=== PATIENT | male | born 1955 | race Caucasian/White ===

== ENCOUNTER → 2016-08-02 | Outpatient (CLI) | payer OTHER ==
[~2016-08-02] MED LIST: ASPI81TA28 PO; AZITTAB PO; CLOP1TAB15 PO; LISI-461 PO; LORA-741 PO; METO25TA56 PO; SIMV40TA2 PO
--- NOTE | 2016-08-02 09:29 | DIAGNOSTIC IMAGING REPORT ---
CT SCAN OF THE PARANASAL SINUSES CLINICAL HISTORY: Chronic sinusitis. Facial pain. COMPARISON STUDY: No priors. TECHNIQUE: High-resolution CT scan of the paranasal sinuses is performed. Images are reviewed in the axial, sagittal, and coronal planes. IV contrast was not administered for this examination. The examination is performed utilizing the fusion protocol. CT DOSE: 665.08 mGycm FINDINGS: Maxillary antra: There is trace dependent mucosal thickening on the right. Clear in the left. Anterior ethmoid sinuses: Clear. Posterior ethmoid sinuses: Clear. Sphenoid sinuses: Clear. Frontal sinuses: Trace mucosal thickening is seen bilaterally. Ostiomeatal complexes: Patent bilaterally. Frontoethmoidal and sphenoethmoidal recesses: Patent bilaterally. Carotid arteries: The carotid arteries are protuberant but covered and without septal attachments. Ethmoid roofs: There is slightly asymmetric elevation of the left ethmoid roof as compared to the right. Nasal turbinates: Normal in appearance. Nasal septum: There is rightward deviation of the bony nasal septum with a small spur. Optic nerves: Covered. Orbits: The bony orbits are intact. Orbital contents are normal in appearance. Calvarium: The skeletal structures are osteopenic. The imaged calvarium is normal in appearance. A large periapical lucency is identified in the right anterior maxilla with cortical breakthrough. Mastoid air cells: Well pneumatized. Brain parenchyma: Partially visualized brain parenchyma is within normal limits. There is atherosclerotic calcification of the cavernous carotid arteries. IMPRESSION: 1. No significant paranasal sinus disease. See above. 2. There is a large apical lucency identified in the right maxilla with associated cortical breakthrough. There is no tooth seen in the overlying socket. Consider follow-up with dentistry. Electronically signed by: Rustam Poole M.D. 08/02/2016 9:27 AM Dictated Date/Time: 08/02/2016 9:22 AM
== END | disposition home or self-care (01) ==
LOC: C.CTS 09:04
DX: J34.2 Deviated nasal septum (principal); J32.9 Chronic sinusitis, unspecified; J34.3 Hypertrophy of nasal turbinates; R51 Headache

== ENCOUNTER 2020-07-19 18:37 | Inpatient (IN) ==
[2020-07-19] MEDS ORDERED: ACETAMINOPHEN 500 MG TAB PO STA (18:54)
--- NOTE | 2020-07-19 18:59 | Emergency Department Note ---
History of Present Illness General Chief complaint: Shortness of Breath/Dyspnea Stated complaint: SOB Time Seen by Provider: 07/19/20 18:44 Source: patient Mode of arrival: EMS History of Present Illness Provider complaint: Flulike symptoms Onset (ago): day(s) Location: chest Severity: moderate Pain Consistency: + constant Quality: + other (Fever, shortness of breath and cough) Relieved By: + none Associated symptoms: + cough, + fever/chills, + malaise and + shortness of breath; no chest pain and no nausea/vomiting This is a 64-year-old male who presents with flulike symptoms since the of this month. The patient states that he had a telephone visit with his doctor and she put him on Augmentin. He declined having Covid testing at that time s tating he was self isolating anyway. He complains of cough, fevers and myalgias. He has also lost his sense of taste and smell. He denies any chest pain. He also states he has been short of breath since the . He went to a local urgent care center today where they found his pulse ox to be 90 and sent him here for further evaluation. No testing was done at that facility. He denies any lower extremity swelling or pain. He denies any abdominal pain, vomiting or diarrhea. He has no known exposure to COVID-19. Home Medications Medication Instructions Recorded Confirmed Type nitroglycerin 0.4 mg sublingual 0.4 mg SL DIRECTED PRN #25 tab 08/20/19 07/19/20 History tablet clopidogrel 75 mg tablet 75 mg PO QAM #90 tab 01/16/20 07/19/20 Rx simvastatin 40 mg tablet 40 mg PO HS #90 tab 01/16/20 07/19/20 Rx lisinopril 20 mg tablet 20 mg PO QAM #30 tab 01/27/20 07/19/20 Rx metoprolol succinate 25 mg 25 mg PO BID #180 tab 02/05/20 07/19/20 Rx tablet,extended release 24 hr montelukast 10 mg tablet 10 mg PO QPM #90 tab 06/24/20 07/19/20 Rx metformin 500 mg tablet,extended 500 mg PO BID #180 tab 07/06/20 07/19/20 Rx release 24 hr aspirin [Aspirin Low Dose] 81 mg PO QAM 07/19/20 07/19/20 History pantoprazole 40 mg PO QAM 07/19/20 07/19/20 History Allergies Allergy/AdvReac Type Severity Reaction Status Date / Time No Known Allergies Allergy Verified 07/19/20 20:05 Past Med/Surg History Medical History (Updated 07/19/20 @ 23:14 by Satinder Diaz MD) CAD, multiple vessel Diabetes mellitus type 2, uncontrolled Gastroesophageal reflux disease Hypertension Lymphadenopathy, cervical Sinusitis STEMI (ST elevation myocardial infarction) Surgical History H/O heart artery stent Family History Mother Coronary heart disease Hypertension Sister Breast cancer Grandfather Myocardial infarction Uncle Myocardial infarction Father Hypertension Social History Smoking Status: Never smoker Hx Alcohol Use: No Hx Substance Use: No Preferred Language: Nepali Communication Ability: Effective Beliefs That Will Affect Care: None Current Living Situation: Alone Feels Safe at Home: Yes Assistive Devices: None Review of Systems See HPI for pertinent positives & negatives. and A total of 10 systems reviewed and were otherwise negative Physical Exam Vital Signs Vital Signs - 24 hr 07/19/20 18:32 07/19/20 18:51 07/19/20 18:54 Temperature 39.6 C H Temperature Source Oral Pulse Rate 100 H 95 H 100 H Pulse Rate from SpO2 Sensor 96 H Pulse Rhythm Regular Pulse Strength Normal Respiratory Rate 30 H 19 30 H Respiratory Effort / Characteristics Non-Labored Spontaneous Respiratory Depth Deep Respiratory Pattern Tachypnea Blood Pressure 151/58 H 151/58 H Blood Pressure Mean 89 90 Blood Pressure Position Lying Pulse Oximetry 90 88 L 90 Oxygen Delivery Method Room Air Room Air Room Air Oxygen Flow Rate 0 Sepsis Recent Fever Within 48 Hours Yes Sepsis New/Unexplained Change in Mental Status N/A Sepsis Action Taken by Nursing No Action Required Oxygen Flow Rate - Titration 2 Pulse Oximetry Post Tiitration 94 07/19/20 19:00 07/19/20 19:30 07/19/20 20:00 Temperature Temperature Source Pulse Rate 97 H 91 H Pulse Rate from SpO2 Sensor 105 H 99 H 92 H Pulse Rhythm Pulse Strength Respiratory Rate 29 H 21 18 Respiratory Effort / Characteristics Respiratory Depth Respiratory Pattern Blood Pressure 159/85 H 178/72 H 102/80 Blood Pressure Mean 112 126 83 Blood Pressure Position Pulse Oximetry 96 94 93 Oxygen Delivery Method Nasal Cannula Nasal Cannula Nasal Cannula Oxygen Flow Rate 2 2 2 Sepsis Recent Fever Within 48 Hours Sepsis New/Unexplained Change in Mental Status Sepsis Action Taken by Nursing Oxygen Flow Rate - Titration Pulse Oximetry Post Tiitration 07/19/20 20:30 07/19/20 21:00 07/19/20 22:30 Temperature Temperature Source Pulse Rate 83 107 H 65 Pulse Rate from SpO2 Sensor 84 84 Pulse Rhythm Pulse Strength Respiratory Rate 21 21 18 Respiratory Effort / Characteristics Respiratory Depth Respiratory Pattern Blood Pressure 134/66 136/51 L Blood Pressure Mean 72 60 Blood Pressure Position Pulse Oximetry 93 92 96 Oxygen Delivery Method Nasal Cannula Nasal Cannula Oxygen Flow Rate 2 2 Sepsis Recent Fever Within 48 Hours Sepsis New/Unexplained Change in Mental Status Sepsis Action Taken by Nursing Oxygen Flow Rate - Titration Pulse Oximetry Post Tiitration 07/19/20 23:00 Temperature 37.3 C Temperature Source Pulse Rate 70 Pulse Rate from SpO2 Sensor Pulse Rhythm Pulse Strength Respiratory Rate 20 Respiratory Effort / Characteristics Respiratory Depth Respiratory Pattern Blood Pressure 145/67 H Blood Pressure Mean 93 Blood Pressure Position Pulse Oximetry 96 Oxygen Delivery Method Nasal Cannula Oxygen Flow Rate 2 Sepsis Recent Fever Within 48 Hours Sepsis New/Unexplained Change in Mental Status Sepsis Action Taken by Nursing Oxygen Flow Rate - Titration Pulse Oximetry Post Tiitration Constitutional: Vital signs reviewed. Warm to touch. Eyes: Pupils are equal round reactive to light. Conjunctiva are noninjected. ENT: Pharynx is clear without erythema or exudate. Mucous membranes are moist. Neck supple without meningeal signs. Respiratory: Scattered rhonchi. Breath sounds are equal bilaterally. Cardiovascular: Regular rate and rhythm. No rubs or gallops. GI: Soft, nondistended and nontender. Bowel sounds are present. Musculoskeletal: No peripheral edema. No lower extremity tenderness. Integumentary: No cyanosis. or jaundice. Neurological: The patient is awake and alert. No focal deficits. Psychiatric: Normal affect. Not anxious appearing. Course Administered Medications Discontinued Medications Acetaminophen (Acetaminophen 500 Mg Tab) 1,000 mg PO NOW STA Stop: 07/19/20 18:55 Last Admin: 07/19/20 18:37 Dose: 1,000 mg Documented by: [id number] Dexamethasone (Dexamethasone Sod Inj 10 Mg/Ml Vial) 6 mg IV NOW ONE Stop: 07/19/20 20:36 Last Admin: 07/19/20 23:02 Dose: 6 mg Documented by: [id number] Ioversol (Optiray 320 125ml) 119 ml IV ONCE ONE Stop: 07/19/20 21:34 Last Admin: 07/19/20 21:33 Dose: 119 ml Documented by: [id number] Medical Decision Making Differential Diagnosis COVID-19, pneumonia, bronchitis, influenza, pulmonary embolism Medical Records Attestation: I reviewed the patient's medical records. I did perform a limited focused review of portions of the patient's old chart on the electronic medical record. The patient had a telephone visit with his primary care provider on July 14. He declined Covid testing at that time and was treated with Augmentin and Tessalon Perles. Home Medications Current Medication List: was personally reviewed by me Laboratory Data Attestation: I reviewed the patient's lab results. Result diagrams: 07/19/20 19:16 07/19/20 19:16 Lab Results 07/19/20 07/19/20 07/19/20 Range/Units 19:16 19:16 19:16 WBC 12.75 H (4.8-10.8) K/uL RBC 4.45 L (4.7-6.1) M/uL Hgb 12.9 L (14.0-18.0) g/dL Hct 37.8 L (42-52) % MCV 84.9 (80-100) fL MCH 29.0 (25-34) pg MCHC 34.1 (32-36) g/dL RDW Std Deviation 46.4 H (36.4-46.3) fL RDW Coeff of Nanette 14.7 H (11.5-14.5) % Plt Count 204 (130-400) K/uL MPV 9.9 (7.4-10.4) fL Immature Gran % (Auto) 0.2 % Neut % (Auto) 88.9 % Lymph % (Auto) 6.4 % Sunflower % (Auto) 4.2 % Eos % (Auto) 0.1 % Baso % (Auto) 0.2 % Neut # (Auto) 11.34 H (1.4-6.5) K/uL Lymph # (Auto) 0.81 L (1.2-3.4) K/uL Sunflower # (Auto) 0.54 (0.11-0.59) K/uL Eos # (Auto) 0.01 (0-0.5) K/uL Baso # (Auto) 0.02 (0-0.2) K/uL Immature Gran # (Auto) 0.03 H (0.00-0.02) K/uL PT 12.4 H (9.0-12.0) Seconds INR 1.2 H (0.9-1.1) APTT 26.5 (21.0-31.0) Seconds PTT Ratio 0.9 D-Dimer 720 H* (0-500) ug/L FEU Sodium 134 L (136-145) mmol/L Potassium 4.1 (3.5-5.1) mmol/L Chloride 100 (98-107) mmol/L Carbon Dioxide 27 (21-32) mmol/L Anion Gap 7.0 (3-11) BUN 19 H (7-18) mg/dl Creatinine 1.30 (0.6-1.4) mg/dl Est Cr Clr Drug Dosing 59.5 ml/min Est GFR ( Amer) 66.4 Est GFR (Non-Af Amer) 57.3 BUN/Creatinine Ratio 14.8 (10-20) Glucose 124 H (70-99) mg/dl Lactate (0.4-2.0) mmol/L Calcium 8.5 (8.5-10.1) mg/dl Total Bilirubin 1.2 H (0.2-1) mg/dl AST 38 H (15-37) U/L ALT 56 (12-78) U/L Alkaline Phosphatase 86 (45-117) U/L Troponin I 0.021 (0-0.045) ng/ml Total Protein 7.8 (6.4-8.2) gm/dl Albumin 3.4 (3.4-5.0) gm/dl Globulin 4.4 H (2.5-4.0) gm/dl Albumin/Globulin Ratio 0.8 L (0.9-2) COVID-19 Eval Order Influ A Molecular Assay (Negative) Influ B Molecular Assay (Negative) SARS-CoV-2, RNA, NAAT (NEGATIVE) 07/19/20 07/19/20 07/19/20 Range/Units 19:16 19:16 20:16 WBC (4.8-10.8) K/uL RBC (4.7-6.1) M/uL Hgb (14.0-18.0) g/dL Hct (42-52) % MCV (80-100) fL MCH (25-34) pg MCHC (32-36) g/dL RDW Std Deviation (36.4-46.3) fL RDW Coeff of Nanette (11.5-14.5) % Plt Count (130-400) K/uL MPV (7.4-10.4) fL Immature Gran % (Auto) % Neut % (Auto) % Lymph % (Auto) % Sunflower % (Auto) % Eos % (Auto) % Baso % (Auto) % Neut # (Auto) (1.4-6.5) K/uL Lymph # (Auto) (1.2-3.4) K/uL Sunflower # (Auto) (0.11-0.59) K/uL Eos # (Auto) (0-0.5) K/uL Baso # (Auto) (0-0.2) K/uL Immature Gran # (Auto) (0.00-0.02) K/uL PT (9.0-12.0) Seconds INR (0.9-1.1) APTT (21.0-31.0) Seconds PTT Ratio D-Dimer (0-500) ug/L FEU Sodium (136-145) mmol/L Potassium (3.5-5.1) mmol/L Chloride (98-107) mmol/L Carbon Dioxide (21-32) mmol/L Anion Gap (3-11) BUN (7-18) mg/dl Creatinine (0.6-1.4) mg/dl Est Cr Clr Drug Dosing ml/min Est GFR ( Amer) Est GFR (Non-Af Amer) BUN/Creatinine Ratio (10-20) Glucose (70-99) mg/dl Lactate 1.6 (0.4-2.0) mmol/L Calcium (8.5-10.1) mg/dl Total Bilirubin (0.2-1) mg/dl AST (15-37) U/L ALT (12-78) U/L Alkaline Phosphatase (45-117) U/L Troponin I (0-0.045) ng/ml Total Protein (6.4-8.2) gm/dl Albumin (3.4-5.0) gm/dl Globulin (2.5-4.0) gm/dl Albumin/Globulin Ratio (0.9-2) COVID-19 Eval [facility] A Molecular Assay (Negative) Influ B Molecular Assay (Negative) SARS-CoV-2, RNA, NAAT POSITIVE A* (NEGATIVE) 07/19/20 Range/Units 20:16 WBC (4.8-10.8) K/uL RBC (4.7-6.1) M/uL Hgb (14.0-18.0) g/dL Hct (42-52) % MCV (80-100) fL MCH (25-34) pg MCHC (32-36) g/dL RDW Std Deviation (36.4-46.3) fL RDW Coeff of Nanette (11.5-14.5) % Plt Count (130-400) K/uL MPV (7.4-10.4) fL Immature Gran % (Auto) % Neut % (Auto) % Lymph % (Auto) % Sunflower % (Auto) % Eos % (Auto) % Baso % (Auto) % Neut # (Auto) (1.4-6.5) K/uL Lymph # (Auto) (1.2-3.4) K/uL Sunflower # (Auto) (0.11-0.59) K/uL Eos # (Auto) (0-0.5) K/uL Baso # (Auto) (0-0.2) K/uL Immature Gran # (Auto) (0.00-0.02) K/uL PT (9.0-12.0) Seconds INR (0.9-1.1) APTT (21.0-31.0) Seconds PTT Ratio D-Dimer (0-500) ug/L FEU Sodium (136-145) mmol/L Potassium (3.5-5.1) mmol/L Chloride (98-107) mmol/L Carbon Dioxide (21-32) mmol/L Anion Gap (3-11) BUN (7-18) mg/dl Creatinine (0.6-1.4) mg/dl Est Cr Clr Drug Dosing ml/min Est GFR ( Amer) Est GFR (Non-Af Amer) BUN/Creatinine Ratio (10-20) Glucose (70-99) mg/dl Lactate (0.4-2.0) mmol/L Calcium (8.5-10.1) mg/dl Total Bilirubin (0.2-1) mg/dl AST (15-37) U/L ALT (12-78) U/L Alkaline Phosphatase (45-117) U/L Troponin I (0-0.045) ng/ml Total Protein (6.4-8.2) gm/dl Albumin (3.4-5.0) gm/dl Globulin (2.5-4.0) gm/dl Albumin/Globulin Ratio (0.9-2) COVID-19 Eval Order Influ A Molecular Assay Negative (Negative) Influ B Molecular Assay Negative (Negative) SARS-CoV-2, RNA, NAAT (NEGATIVE) Imaging Data Attestation: I personally reviewed and interpreted this imaging study as follows: My Impression: Chest x-ray per my interpretation shows patchy infiltrates concerning for pneumonia. Radiologist's Impression: Preliminary Findings Only See Final Report For Complete Findings CTA CHEST: Comparison: CT chest 06/05/13. Motion artifact obscures evaluation of distal pulmonary artery branch vessels. No acute pulmonary embolism as visualized. No thoracic aortic aneurysm. Normal heart size. No pericardial effusion. Widespread and patchy bilateral ground-glass infiltrates suspicious for viral pneumonia. No pleural effusion or pneumothorax. There is an 11 mm pulmonary nodule in the left upper lobe (series 4, image 140). This nodule measured 9 mm on prior exam from 2013. Given slow interval increase in size, this is favored to be benign. However, given that the nodule has incr eased in size, a neoplastic nodule cannot be definitely excluded. Consider continued imaging follow-up. Chronic granulomatous disease. No acute osseous findings. Radiologist: Mendoza Muir M.D. Study ready at 22:09 and initial results transmitted at 22:25 ECG Data Attestation: I personally reviewed and interpreted this ECG as follows: Indication: + SOB/dyspnea Rate (beats per minute): 97 Rhythm: + normal sinus ECG ST segments: + T-wave inversions (Biphasic T waves in leads V5 and 6); no ST elevation ECG Findings: no PVCs MDM Narrative I did evaluate the patient as noted above. The patient is presenting with symptoms consistent with COVID-19. He was placed in respiratory isolation. COVID-19 testing was obtained. This came back positive. IV access was established. I did place an order for continuous cardiac monitoring. The monitor showed normal sinus rhythm at a rate of 96 bpm. I did order and personally review the patient's 12-lead EKG as described above. He has no evidence of acute ischemia. I did order and personally reviewed the images of the patient's chest x-ray as described above. He did appear to have some patchy infiltrates. I did order and review the patient's blood work as noted in the electronic medical record. His white blood cell count is elevated with some mild lymphopenia in the differential. D-dimer was elevated at 720. Troponin is negative. Influenza testing is negative. I did discuss the test results with the patient. He was agreeable to CT scanning of the chest to rule out PE. I did order a CT angiogram of the chest. I did review the images myself as well as the radiology report as described above. There is no evidence of pulmonary embolism. He does however have widespread and patchy bilateral groundglass infiltrates consistent with COVID-19 pneumonia. He also has an enlarging 11 mm pulmonary nodule in the left upper lobe. The patient was informed of his test results. He will be hospitalized due to his hypoxemia. The nurse noted a pulse ox in the high 80s with significant respiratory effort and accessory muscle use when off the oxygen. The case was discussed with the correctional counselor/case manager and the hospitalist was informed. Impression & Plan Hypoxemia, Pneumonia due to 2019 novel coronavirus, Pulmonary nodule Discharge Plan Visit Data Chief Complaint: Shortness of Breath/Dyspnea Stated Complaint: SOB ED Provider: Satinder Diaz Discharge Problem: Hypoxemia, Pneumonia due to 2019 novel coronavirus, Pulmonary nodule Patient Disposition: Being Evaluated by Hospitalist Forms Stand Alone Forms: My [facility] [employer] Prescriptions Prescriptions: No Action clopidogrel 75 mg tablet 75 mg PO QAM Qty: 90 RF: 3 simvastatin 40 mg tablet 40 mg PO HS Qty: 90 RF: 3 lisinopril 20 mg tablet 20 mg PO QAM Qty: 30 RF: 5 metoprolol succinate 25 mg tablet extended release 24 hr 25 mg PO BID Qty: 180 RF: 3 montelukast 10 mg tablet 10 mg PO QPM Qty: 90 RF: 3 metformin 500 mg tablet extended release 24 hr 500 mg PO BID Qty: 180 RF: 3 nitroglycerin 0.4 mg tablet, sublingual 0.4 mg SL DIRECTED PRN (Reason: Chest Pain) Qty: 25 RF: 0 aspirin [Aspirin Low Dose] 81 mg Tablet,Delayed Release (Dr/Ec) 81 mg PO QAM RF: 0 pantoprazole 40 mg tablet,delayed release (DR/EC) 40 mg PO QAM RF: 0 Referrals Referrals: Nishant Dawn III, MD [Primary Care Provider] -
[2020-07-19 19:42] LABS: Basophils # (auto) 0.02 K/uL (0-0.2); Basophils % (auto) 0.2 %; Eosinophils # (auto) 0.01 K/uL (0-0.5); Eosinophils % (auto) 0.1 %; Hematocrit (blood only) 37.8 % (42-52); Hemoglobin 12.9 g/dL (14.0-18.0); Immature Granulocytes # (auto) 0.03 K/uL (0.00-0.02); Immature Granulocytes % (auto) 0.2 %; Lymphocytes # (auto) 0.81 K/uL (1.2-3.4); Lymphocytes % (auto) 6.4 %; Mean Corpuscular Hgb Conc 34.1 g/dL (32-36); Mean Corpuscular Volume 84.9 fL (80-100); Mean Platelet Volume 9.9 fL (7.4-10.4); Monocytes # (auto) 0.54 K/uL (0.11-0.59); Monocytes % (auto) 4.2 %; Neutrophils # (auto) 11.34 K/uL (1.4-6.5); Neutrophils % (auto) 88.9 %; Platelet Count 204 K/uL (130-400); RDW Coefficient of Variation 14.7 % (11.5-14.5); RDW Standard Deviation 46.4 fL (36.4-46.3); Red Blood Count 4.45 M/uL (4.7-6.1); White Blood Count 12.75 K/uL (4.8-10.8)
[2020-07-19 19:54] LABS: INR 1.2 (0.9-1.1); Partial Thromboplastin Ratio 0.9; Partial Thromboplastin Time 26.5 Seconds (21.0-31.0); Prothrombin Time 12.4 Seconds (9.0-12.0)
[2020-07-19 19:59] LABS: D Dimer 720 ug/L FEU (0-500)
[2020-07-19 20:07] LABS: Albumin Level 3.4 gm/dl (3.4-5.0); BUN Creatinine Ratio 14.8 (10-20); Calcium 8.5 mg/dl (8.5-10.1); Creatinine Clr Calc Pharmacy 59.5 ml/min; Est GFR (African American) 66.4; Est GFR (Non-African American) 57.3; Potassium 4.1 mmol/L (3.5-5.1)
[2020-07-19 20:12] LABS: Albumin Globulin Ratio 0.8 (0.9-2); Bilirubin,Total 1.2 mg/dl (0.2-1); Globulin 4.4 gm/dl (2.5-4.0); Total Protein 7.8 gm/dl (6.4-8.2); Troponin I 0.021 ng/ml (0-0.045)
[2020-07-19] MEDS ORDERED: DEXAMETHASONE SOD INJ 10 MG/ML VIAL IV ONE (20:35)
[2020-07-19 20:42] LABS: Influenza A virus by PCR Negative (Negative)
[2020-07-19 20:43] LABS: Influenza B virus by PCR Negative (Negative)
[2020-07-19] MEDS ORDERED: OPTIRAY 320 125ml IV ONE (21:33)
--- NOTE | 2020-07-19 23:51 | History & Physical Report ---
Date of Service July 19, 2020 Assessment & Plan (1) Pneumonia due to 2019 novel coronavirus: Pneumonia due to COVID-19 virus with hypoxia- Dexamethasone 6 mg IV every morning Azithromycin 500 mg IV daily Ventolin HFA 2 puffs 4 times daily, and every 2 hours as needed Zinc sulfate 220 mg p.o. every morning Nasal cannula oxygen, titrate to keep pulse ox 94 to 95% Present on Admission?: Yes (2) Hypoxemia: See above Present on Admission?: Yes (3) Pulmonary nodule: Left upper lobe pulmonary nodule is increased in size from 9 mm in 2013 to 11 mm today. We will refer to pulmonology for follow-up. Present on Admission?: Yes (4) Dyslipidemia: Continue simvastatin 40 mg at bedtime Present on Admission?: Yes (5) Type 2 diabetes mellitus: Hold Metformin Placed on Accu-Cheks before meals and at bedtime with NovoLog coverage per scale. Of note, patient reports last time he was on steroids his blood sugar increased to 400. Will need to be watched closely, and may need to be placed on long acting insulin for sugar bump significantly while on dexamethasone. Present on Admission?: Yes (6) Gastroesophageal reflux disease: Continue pantoprazole 40 mg every morning Present on Admission?: Yes (7) CAD, multiple vessel: CAD/hypertension- Continue aspirin, clopidogrel, metoprolol succinate. Hold lisinopril. Present on Admission?: Yes (8) Hypertension: See above Present on Admission?: Yes History of Present Illness Chief Complaint: The patient presents to the emergency department with complaint of shortness of breath, dyspnea on exertion, cough, fever and chills that began around 10 July. Primary Care Provider: Nishant Dawn MD The patient is a 64-year-old male with past medical history including pulmonary nodule, dyslipidemia, stented coronary artery, diabetes mellitus type 2, cervical lymphadenopathy, GERD, multivessel CAD, hypertension and obesity. The patient initially developed symptoms on July 10, had a telephone visit with his doctor, and was placed on Augmentin. He declined COVID-19 testing at that time since he was already self isolating. Since that time he has developed cough, fevers and muscle aches, and more recently has lost his sense of taste and smell which, makes it more difficult for him to eat now. He went to a local urgent care center today, with the intent of getting a COVID-19 test, however, because of his pulse ox of 90 while he was there, he was sent to the ED for further evaluation. Work-up in the emergency department included the following: Abnormal vital signs showed a temperature of 103.3, and pulse ox 88% on room air. Laboratories: WBC 12.75, hemoglobin 12.9, INR 1.2, glucose 124, D-dimer 720, sodium 134, total bilirubin 1.2, AST 38 and COVID-19 test positivity. Chest x-ray showed bilateral interstitial infiltrates. CT angiography PE protocol was negative for PE, did show findings consistent with viral pneumonia. Left upper lobe pulmonary nodule increased in size from 9 mm in 2012 to 11 mm today. Chronic granulomatous disease was present. Allergies Allergy/AdvReac Type Severity Reaction Status Date / Time No Known Allergies Allergy Verified 07/19/20 20:05 Home Medications Medication Instructions Recorded Confirmed Type nitroglycerin 0.4 mg sublingual 0.4 mg SL DIRECTED PRN #25 tab 08/20/19 07/19/20 History tablet clopidogrel 75 mg tablet 75 mg PO QAM #90 tab 01/16/20 07/19/20 Rx simvastatin 40 mg tablet 40 mg PO HS #90 tab 01/16/20 07/19/20 Rx lisinopril 20 mg tablet 20 mg PO QAM #30 tab 01/27/20 07/19/20 Rx metoprolol succinate 25 mg 25 mg PO BID #180 tab 02/05/20 07/19/20 Rx tablet,extended release 24 hr montelukast 10 mg tablet 10 mg PO QPM #90 tab 06/24/20 07/19/20 Rx metformin 500 mg tablet,extended 500 mg PO BID #180 tab 07/06/20 07/19/20 Rx release 24 hr aspirin [Aspirin Low Dose] 81 mg PO QAM 07/19/20 07/19/20 History pantoprazole 40 mg PO QAM 07/19/20 07/19/20 History Past Med/Surg History Medical History (Updated 07/19/20 @ 23:14 by Satinder Diaz MD) CAD, multiple vessel Diabetes mellitus type 2, uncontrolled Gastroesophageal reflux disease Hypertension Lymphadenopathy, cervical Sinusitis STEMI (ST elevation myocardial infarction) Surgical History H/O heart artery stent Family History Mother Coronary heart disease Hypertension Sister Breast cancer Grandfather Myocardial infarction Uncle Myocardial infarction Father Hypertension Social History Smoking Status: Never smoker Hx Alcohol Use: No Hx Substance Use: No Preferred Language: Hebrew Communication Ability: Effective Beliefs That Will Affect Care: None Current Living Situation: Alone Feels Safe at Home: Yes Assistive Devices: None Review of Systems Review of Systems: The patient denies chest pain, palpitations, lower extremity swelling, sore throat, chills, sweats, weight change, vomiting, diarrhea , constipation, abdominal pain, pelvic pain, blood in urine or stool, dysuria, urinary frequency or urgency, memory loss, loss of consciousness, rash, abnormal bruising or bleeding, imbalance, focal weakness, numbness or tingling in arms or legs, back or neck pain, or night sweats. The review of systems is otherwise negative other than for that already noted above, and at least 10 systems have been reviewed. Physical Exam Physical Exam: The patient is awake, alert and oriented 3, well developed and well nourished, normocephalic and atraumatic, lying in bed and in no acute distress. HEENT--PERRL, EOMI, mucous membranes and oropharynx dry. Neck--supple. No JVD. No bruits. Thyroid normal, trachea midline, no adenopathy. Heart--normal S1 and S2. No murmurs, rubs or gallops. Lungs--coarse breath sounds bilaterally. No respiratory distress, no accessory muscle use. Abdomen--normal bowel sounds and soft. Nontender. Nondistended. Obese. Extremities--no cyanosis or clubbing. No edema. Dermatologic--normal skin turgor, normal color, no abnormal lymph nodes, no rash. Neurologic--cranial nerves II through XII grossly intact. Rheumatologic--normal range of motion. Psychiatric--normal affect. Results & Data Results & Data ([facility]) Vital Signs (Past 12 Hours) Vital Signs Temp Pulse Resp BP Pulse Ox 07/19/20 23:00 99.1 F 70 20 145/67 H 96 07/19/20 22:30 65 18 96 07/19/20 21:00 107 H 21 136/51 L 92 07/19/20 20:30 83 21 134/66 93 07/19/20 20:00 91 H 18 102/80 93 07/19/20 19:30 97 H 21 178/72 H 94 07/19/20 19:00 29 H 159/85 H 96 07/19/20 18:54 100 H 30 H 90 07/19/20 18:51 95 H 19 151/58 H 88 L 07/19/20 18:32 103.3 F H 100 H 30 H 151/58 H 90 Laboratory Results Laboratory Results WBC 14.84 K/uL (4.8-10.8) H 07/20/20 05:42 RBC 4.55 M/uL (4.7-6.1) L 07/20/20 05:42 Hgb 13.0 g/dL (14.0-18.0) L 07/20/20 05:42 Hct 39.1 % (42-52) L 07/20/20 05:42 MCV 85.9 fL (80-100) 07/20/20 05:42 MCH 28.6 pg (25-34) 07/20/20 05:42 MCHC 33.2 g/dL (32-36) 07/20/20 05:42 RDW Std Deviation 46.0 fL (36.4-46.3) 07/20/20 05:42 RDW Coeff of Nanette 14.6 % (11.5-14.5) H 07/20/20 05:42 Plt Count 185 K/uL (130-400) 07/20/20 05:42 MPV 9.6 fL (7.4-10.4) 07/20/20 05:42 Immature Gran % (Auto) 0.2 % 07/20/20 05:42 Neut % (Auto) 93.7 % 07/20/20 05:42 Lymph % (Auto) 4.0 % 07/20/20 05:42 [place] % (Auto) 2.0 % 07/20/20 05:42 Eos % (Auto) 0.0 % 07/20/20 05:42 Baso % (Auto) 0.1 % 07/20/20 05:42 Neut # (Auto) 13.91 K/uL (1.4-6.5) H 07/20/20 05:42 Lymph # (Auto) 0.59 K/uL (1.2-3.4) L 07/20/20 05:42 [place] # (Auto) 0.30 K/uL (0.11-0.59) 07/20/20 05:42 Eos # (Auto) 0.00 K/uL (0-0.5) 07/20/20 05:42 Baso # (Auto) 0.01 K/uL (0-0.2) 07/20/20 05:42 Immature Gran # (Auto) 0.03 K/uL (0.00-0.02) H 07/20/20 05:42 PT 12.4 Seconds (9.0-12.0) H 07/19/20 19:16 INR 1.2 (0.9-1.1) H 07/19/20 19:16 APTT 26.5 Seconds (21.0-31.0) 07/19/20 19:16 PTT Ratio 0.9 07/19/20 19:16 D-Dimer 720 ug/L FEU (0-500) H* 07/19/20 19:16 Sodium 134 mmol/L (136-145) L 07/19/20 19:16 Potassium 4.1 mmol/L (3.5-5.1) 07/19/20 19:16 Chloride 100 mmol/L (98-107) 07/19/20 19:16 Carbon Dioxide 27 mmol/L (21-32) 07/19/20 19:16 Anion Gap 7.0 (3-11) 07/19/20 19:16 BUN 19 mg/dl (7-18) H 07/19/20 19:16 Creatinine 1.30 mg/dl (0.6-1.4) 07/19/20 19:16 Est Cr Clr Drug Dosing 59.5 ml/min 07/19/20 19:16 Est GFR ( Amer) 66.4 07/19/20 19:16 Est GFR (Non-Af Amer) 57.3 07/19/20 19:16 BUN/Creatinine Ratio 14.8 (10-20) 07/19/20 19:16 Glucose 124 mg/dl (70-99) H 07/19/20 19:16 POC Glucose 120 mg/dl (70-99) H 07/20/20 01:45 Lactate 1.6 mmol/L (0.4-2.0) 07/19/20 19:16 Calcium 8.5 mg/dl (8.5-10.1) 07/19/20 19:16 Total Bilirubin 1.2 mg/dl (0.2-1) H 07/19/20 19:16 AST 38 U/L (15-37) H 07/19/20 19:16 ALT 56 U/L (12-78) 07/19/20 19:16 Alkaline Phosphatase 86 U/L (45-117) 07/19/20 19:16 Troponin I 0.021 ng/ml (0-0.045) 07/19/20 19:16 Total Protein 7.8 gm/dl (6.4-8.2) 07/19/20 19:16 Albumin 3.4 gm/dl (3.4-5.0) 07/19/20 19:16 Globulin 4.4 gm/dl (2.5-4.0) H 07/19/20 19:16 Albumin/Globulin Ratio 0.8 (0.9-2) L 07/19/20 19:16 COVID-19 Eval Order Covid19 IDNow [facility] 07/19/20 19:16 Influ A Molecular Assay Negative (Negative) 07/19/20 20:16 Influ B Molecular Assay Negative (Negative) 07/19/20 20:16 SARS-CoV-2, RNA, NAAT POSITIVE (NEGATIVE) A* 07/19/20 20:16 Diagnostic Findings [facility] Patient: MAHSA SAHU V (Male) : 53 Status: ER Date: 07/19/20 21:38 Room #: History: sob +covid Slices: 630 Priors: Tech: Cely Leiva @ [phone] Exams: CTA CHEST Contrast: IV Amt: 119 ml optiray 320 Accession Numbers: [id number] Preliminary Findings Only See Final Report For Complete Findings CTA CHEST: Comparison: CT chest 06/05/13. Motion artifact obscures evaluation of distal pulmonary artery branch vessels. No acute pulmonary embolism as visualized. No thoracic aortic aneurysm. Normal heart size. No pericardial effusion. Widespread and patchy bilateral ground-glass infiltrates suspicious for viral pneumonia. No pleural effusion or pneumothorax. There is an 11 mm pulmonary nodule in the left upper lobe (series 4, image 140). This nodule measured 9 mm on prior exam from 2013. Given slow interval increase in size, this is favored to be benign. However, given that the nodule has increased in size, a neoplastic nodule cannot be definitely excluded. Consider continued imaging follow-up. Chronic granulomatous disease. No acute osseous findings. Radiologist: Mendoza Muir M.D. Study ready at 22:09 and initial results transmitted at 22:25 *This report constitutes a preliminary interpretation only. Non-acute findings felt to be unrelated to the clinical presentation may not be discussed in this report. The study will be interpreted and a final report will be generated by the local Radiologist the following shift. To reach the hospital radiology department call [phone]. If a discrepancy is found between the preliminary and final interpretations of this study, please notify us via our Client Portal at [email or web address], under QA Exams.You can also fax this report with a description of the discrepancy, or include the final report, to our daytime fax number [phone].If faxing, please indicate the severity of discrepancy using one of the following categories: [ ] 1 - Agree/Informational [ ] 2 - Unlikely to Affect Management [ ] 3 - Possible Eventual Change of Management [ ] 4 - Probable Immediate Change of Management For all other patient related information, please fax us at [phone]. [id number] Code Status & VTE Plan Code Status Full code VTE Prophylaxis Plan VTE Prophylaxis will be ordered: Yes PG Care Time/CCT Total # of Minutes Spent Total Time Spent with Patient: Total time spent is greater than 50% [facility] (as documented) at patient's floor/unit and/or counseling patient: Coding Level of Care Code 81089 Initial Inpt Care Lvl 3 Diagnoses Pneumonia due to 2019 novel coronavirus U07.1; J12.89 Hypoxemia R09.02 Pulmonary nodule R91.1 Dyslipidemia E78.5 Type 2 diabetes mellitus E11.9 Gastroesophageal reflux disease K21.9 CAD, multiple vessel I25.10 Hypertension I10 Hypertension type: essential hypertension (1) Hypertension Hypertension type: essential hypertension Qualified Code(s): I10 - Essential (primary) hypertension
[2020-07-20] MEDS ORDERED: NITROGLYCERIN SL 0.4 MG/TAB TAB SL PRN (00:52)
[2020-07-20] MEDS ORDERED: GLUCOSE 10 TABS/TUBE PO PRN (00:52)
[2020-07-20] MEDS ORDERED: ONDANSETRON INJ 2 MG/ML 2 ML VIAL IV PRN (00:52)
[2020-07-20] MEDS ORDERED: GLUCAGON FOR INJ 1 MG VIAL SQ PRN (00:52)
[2020-07-20] MEDS ORDERED: ENOXAPARIN 0.5 MG/KG SQ SCH (00:52)
[2020-07-20] MEDS ORDERED: ACETAMINOPHEN 325 MG TAB PO PRN (00:52)
[2020-07-20] MEDS ORDERED: DEXTROSE 50% 50 ML SYRINGE IV PRN (00:52)
[2020-07-20] MEDS ORDERED: CARBOHYDRATES FOR HYPOGLYCEMIA PO PRN (00:52)
[2020-07-20] MEDS ORDERED: GLUCOSE 40% GEL 15 GM TUBE PO PRN (00:52)
[2020-07-20] MEDS: ALBUTEROL HFA 8 GM INHALER INH SCH ×3 (01:22→11:35)
[2020-07-20] MEDS: METOPROLOL SUCC 25MG EXT REL TAB PO SCH ×3 (01:39→20:34)
[2020-07-20 05:51] LABS: Basophils # (auto) 0.01 K/uL (0-0.2); Basophils % (auto) 0.1 %; Hematocrit (blood only) 39.1 % (42-52); Immature Granulocytes # (auto) 0.03 K/uL (0.00-0.02); Immature Granulocytes % (auto) 0.2 %; Lymphocytes # (auto) 0.59 K/uL (1.2-3.4); Mean Corpuscular Hemoglobin 28.6 pg (25-34); Mean Corpuscular Hgb Conc 33.2 g/dL (32-36); Mean Corpuscular Volume 85.9 fL (80-100); Mean Platelet Volume 9.6 fL (7.4-10.4); Neutrophils # (auto) 13.91 K/uL (1.4-6.5); Neutrophils % (auto) 93.7 %; Platelet Count 185 K/uL (130-400); RDW Coefficient of Variation 14.6 % (11.5-14.5); Red Blood Count 4.55 M/uL (4.7-6.1); White Blood Count 14.84 K/uL (4.8-10.8)
[2020-07-20 06:10] LABS: Albumin Level 3.3 gm/dl (3.4-5.0); BUN Creatinine Ratio 16.9 (10-20); Calcium 8.7 mg/dl (8.5-10.1); Creatinine Clr Calc Pharmacy 59.9 ml/min; Est GFR (Non-African American) 57.8; Magnesium 2.6 mg/dl (1.8-2.4); Potassium 4.7 mmol/L (3.5-5.1)
[2020-07-20 06:13] LABS: Albumin Globulin Ratio 0.7 (0.9-2); Bilirubin,Total 1.1 mg/dl (0.2-1); Globulin 4.4 gm/dl (2.5-4.0); Total Protein 7.7 gm/dl (6.4-8.2)
[2020-07-20 06:33] LABS: Estimated Average Glucose 137 mg/dl; Hemoglobin A1C 6.4 % (4.5-5.6)
--- NOTE | 2020-07-20 07:47 | XRay Report ---
XR chest 1V portable HISTORY: Dyspnea COMPARISON: Chest 09/24/2018. FINDINGS: There are low lung volumes. The heart is normal in size. Patchy hazy airspace opacities see n within the left upper lobe and right lower lobe consistent with a viral pneumonia. No pneumothorax. No pleural effusions. IMPRESSION: Patchy hazy airspace opacities consistent with a viral pneumonia. ACT 112: Negative or not required by law. Electronically signed by: Davion Kingsley M.D. 07/20/2020 7:46 AM
[2020-07-20] MEDS: ZINC SULFATE 220 MG CAPSULE PO SCH (07:55)
[2020-07-20] MEDS: CLOPIDOGREL BISULFATE 75 MG TAB PO SCH (07:55)
[2020-07-20] MEDS: PANTOprazole 40 MG TAB PO SCH (07:56)
[2020-07-20] MEDS: ENOXAPARIN INJ 60 MG/0.6 ML SYR SQ SCH ×2 (07:56→20:35)
[2020-07-20] MEDS: ASPIRIN 81 MG ECTAB PO SCH (07:56)
[2020-07-20] MEDS: MONTELUKAST SODIUM 10 MG TABLET PO SCH (07:56)
--- NOTE | 2020-07-20 08:01 | CT Scan Report ---
CT ANGIOGRAM OF THE CHEST CLINICAL HISTORY: Shortness of breath. Possible pulmonary embolism. COMPARISON STUDY: June 05, 2013, chest x-ray dated 07/19/2020 TECHNIQUE: Following the IV administration of 119 mL of Optiray-320, CT angiogram of the thorax was p erformed from the thoracic inlet to the lung bases utilizing the pulmonary embolus protocol. Images a re reviewed in the axial, sagittal, and coronal planes. IV contrast was administered without complica tion. MIP imaging was performed. A dose lowering technique was utilized adhering to the principles o f ALARA. CT DOSE: 777.78 mGy.cm FINDINGS: There is hepatic steatosis. There are borderline enlarged mediastinal lymph nodes likely reactive. There was no evidence of thoracic aortic dilatation. There were no pulmonary artery filling defects to indicate acute pulmonary embolism. Evaluation of pe ripheral branches is limited due to respiratory motion artifact No pleural effusions are visualized. There are multifocal groundglass pulmonary opacities with a peripheral distribution. The findings are consistent with although not diagnostic of Covid 19 pneumonia. There is a solid 11 mm left upper lobe pulmonary nodule as visualized image #140/256. This nodule stan sured 9 mm in 2013. The slow interval growth strongly favors a benign nodule. There are coronary artery calcifications present. IMPRESSION: 1. No evidence of acute pulmonary embolism given the limitations of a motion degraded study 2. Multifocal groundglass pulmonary opacities consistent with a pneumonia likely viral 3. Slowly growing 11 mm solid left upper lobe pulmonary nodule. This nodule measured 9 mm in 2013. Th e very slow interval growth strongly favors a benign nodule. ACT 112: Negative or not required by law. Electronically signed by: Alex Albarran M.D. 07/20/2020 8:00 AM
[2020-07-20] MEDS: INSULIN ASPART 100 UNITS/ML 3 ML PEN SC SCH ×4 (08:02→20:33)
[2020-07-20] MEDS: dexAMETHasone 6 MG in SYRINGE 0 ML IV SCH (08:03)
[2020-07-20] MEDS ORDERED: lisinopril 20 MG TAB PO SCH (09:00)
[2020-07-20] MEDS: AZITHROMYCIN 500 MG in DEXTROSE 5% 250 ML IV SCH (09:00)
--- NOTE | 2020-07-20 12:32 | Hospitalist Progress Note ---
Date of Service July 20, 2020 Assessment & Plan (1) Acute respiratory failure with hypoxia: 2nd COVID-19. see below. NC O2 to keep sats >90%. pulm toilet. (2) Pneumonia due to 2019 novel coronavirus: Dexamethasone 6 mg IV daily x 10 days. Plasma discussed with patient - he is 8-10 days into illness - likely not to benefit thus defer. ?benefit of remdesivir - uncertain, but will order x 5 days starting today. Azithromycin 500 mg IV daily for now although procal normal. If any worsening consider adding rocephin. Ventolin HFA prn. Zinc sulfate 220 mg daily. discussed proning with patient - he will attempt. flutter valve. incentive spirometry. (3) Type 2 diabetes mellitus: Hold Metformin. NovoLog coverage per scale. Likely to need basal insulin. BSGs ac/hs. (4) Dyslipidemia: Continue simvastatin. Follow ast/alt w/ remdesivir. (5) Gastroesophageal reflux disease: Continue pantoprazole 40 mg every morning (6) CAD, multiple vessel: continue aspirin, clopidogrel, metoprolol succinate, DESTIN. trop negative. no ACS. (7) Hypertension: controlled (8) Morbid obesity with BMI of 40.0-44.9, adult: BMI 41.8 (9) Pulmonary nodule: Left upper lobe pulmonary nodule is increased in size from 9 mm in 2013 to 11 mm. f/u needed. (10) DVT prophylaxis: lovenox 50mg BID due to increased VTE risk w/ COVID pt's daughter updated by phone today Admission and Anticipated Discharge Date Admission Date: July 19, 2020 Subjective patient with cough and dyspnea. KAUR with minimal activity. had loss of taste/smell - improving. "I actually ate today for the first time in a while." no nausea/emesis/diarrhea. no chest pain. no abd pain. got sick ~Jul 10. Review of Systems Constitutional: + fatigue and + anorexia (but improving); no fever, no chills and no body aches Ear, Nose, Mouth, Throat: no sore throat Respiratory: no sputum production Cardiovascular: no chest pain Gastrointestinal: no abdominal pain, no nausea and no vomiting Musculoskeletal: no myalgia and no body aches Physical Exam Constitutional: + acute distress (tachypnea, dyspneic); no altered mental status ENMT: external ear and nose normal, oropharynx normal Respiratory: + retractions, + uses accessory muscles (minimal), + cough and + tachypneic Auscultation: + crackles (bases); no wheezes Cardiovascular: Rate/Rhythm: regular rate and regular rhythm Heart Sounds: normal S1 and normal S2; no murmur Vessels: posterior tibial pulses present and dorsalis pedis pulses present; no JVD Extremities: no edema Gastrointestinal (Abdomen): normal bowel sounds, soft, nontender, no hepatosplenomegaly Psychiatric: A+Ox3, euthymic affect Results & Data Results & Data ([facility]) Vital Signs (Past 12 Hours) Vital Signs Temp Pulse Resp BP Pulse Ox Pulse Ox 07/20/20 09:47 36.9 C 77 20 130/66 94 07/20/20 08:00 36.8 C 74 20 138/72 92 07/20/20 07:53 75 14 94 07/20/20 06:01 57 L 18 128/56 L 96 07/20/20 04:00 60 16 130/69 98 07/20/20 01:43 36.9 C 77 12 126/59 L 92 07/20/20 01:42 91 07/20/20 01:22 74 20 94 Laboratory Results Laboratory Results - last 24 hr 07/19/20 07/19/20 07/19/20 19:16 19:16 19:16 WBC 12.75 H RBC 4.45 L Hgb 12.9 L Hct 37.8 L MCV 84.9 MCH 29.0 MCHC 34.1 RDW Std Deviation 46.4 H RDW Coeff of Nanette 14.7 H Plt Count 204 MPV 9.9 Immature Gran % (Auto) 0.2 Neut % (Auto) 88.9 Lymph % (Auto) 6.4 [place] % (Auto) 4.2 Eos % (Auto) 0.1 Baso % (Auto) 0.2 Neut # (Auto) 11.34 H Lymph # (Auto) 0.81 L [place] # (Auto) 0.54 Eos # (Auto) 0.01 Baso # (Auto) 0.02 Immature Gran # (Auto) 0.03 H PT 12.4 H INR 1.2 H APTT 26.5 PTT Ratio 0.9 D-Dimer 720 H* Sodium 134 L Potassium 4.1 Chloride 100 Carbon Dioxide 27 Anion Gap 7.0 BUN 19 H Creatinine 1.30 Est Cr Clr Drug Dosing 59.5 Est GFR ( Amer) 66.4 Est GFR (Non-Af Amer) 57.3 BUN/Creatinine Ratio 14.8 Glucose 124 H POC Glucose Estimat Average Glucose Hemoglobin A1c Lactate Calcium 8.5 Magnesium Total Bilirubin 1.2 H AST 38 H ALT 56 Alkaline Phosphatase 86 Troponin I 0.021 Total Protein 7.8 Albumin 3.4 Globulin 4.4 H Albumin/Globulin Ratio 0.8 L COVID-19 Eval Order Influ A Molecular Assay Influ B Molecular Assay SARS-CoV-2, RNA, NAAT 07/19/20 07/19/20 07/19/20 19:16 19:16 20:16 WBC RBC Hgb Hct MCV MCH MCHC RDW Std Deviation RDW Coeff of Nanette Plt Count MPV Immature Gran % (Auto) Neut % (Auto) Lymph % (Auto) [place] % (Auto) Eos % (Auto) Baso % (Auto) Neut # (Auto) Lymph # (Auto) [place] # (Auto) Eos # (Auto) Baso # (Auto) Immature Gran # (Auto) PT INR APTT PTT Ratio D-Dimer Sodium Potassium Chloride Carbon Dioxide Anion Gap BUN Creatinine Est Cr Clr Drug Dosing Est GFR ( Amer) Est GFR (Non-Af Amer) BUN/Creatinine Ratio Glucose POC Glucose Estimat Average Glucose Hemoglobin A1c Lactate 1.6 Calcium Magnesium Total Bilirubin AST ALT Alkaline Phosphatase Troponin I Total Protein Albumin Globulin Albumin/Globulin Ratio COVID-19 [facility] Influ A Molecular Assay Influ B Molecular Assay SARS-CoV-2, RNA, NAAT POSITIVE A* 07/19/20 07/20/20 07/20/20 20:16 01:45 05:42 WBC 14.84 H RBC 4.55 L Hgb 13.0 L Hct 39.1 L MCV 85.9 MCH 28.6 MCHC 33.2 RDW Std Deviation 46.0 RDW Coeff of Nanette 14.6 H Plt Count 185 MPV 9.6 Immature Gran % (Auto) 0.2 Neut % (Auto) 93.7 Lymph % (Auto) 4.0 [place] % (Auto) 2.0 Eos % (Auto) 0.0 Baso % (Auto) 0.1 Neut # (Auto) 13.91 H Lymph # (Auto) 0.59 L [place] # (Auto) 0.30 Eos # (Auto) 0.00 Baso # (Auto) 0.01 Immature Gran # (Auto) 0.03 H PT INR APTT PTT Ratio D-Dimer Sodium Potassium Chloride Carbon Dioxide Anion Gap BUN Creatinine Est Cr Clr Drug Dosing Est GFR ( Amer) Est GFR (Non-Af Amer) BUN/Creatinine Ratio Glucose POC Glucose 120 H Estimat Average Glucose Hemoglobin A1c Lactate Calcium Magnesium Total Bilirubin AST ALT Alkaline Phosphatase Troponin I Total Protein Albumin Globulin Albumin/Globulin Ratio COVID-19 Eval Order Influ A Molecular Assay Negative Influ B Molecular Assay Negative SARS-CoV-2, RNA, NAAT 07/20/20 07/20/20 07/20/20 05:42 05:42 07:59 WBC RBC Hgb Hct MCV MCH MCHC RDW Std Deviation RDW Coeff of Nanette Plt Count MPV Immature Gran % (Auto) Neut % (Auto) Lymph % (Auto) [place] % (Auto) Eos % (Auto) Baso % (Auto) Neut # (Auto) Lymph # (Auto) [place] # (Auto) Eos # (Auto) Baso # (Auto) Immature Gran # (Auto) PT INR APTT PTT Ratio D-Dimer Sodium 135 L Potassium 4.7 Chloride 103 Carbon Dioxide 27 Anion Gap 5.0 BUN 22 H Creatinine 1.29 Est Cr Clr Drug Dosing 59.9 Est GFR ( Amer) 67.0 Est GFR (Non-Af Amer) 57.8 BUN/Creatinine Ratio 16.9 Glucose 158 H POC Glucose 161 H Estimat Average Glucose 137 Hemoglobin A1c 6.4 H Lactate Calcium 8.7 Magnesium 2.6 H Total Bilirubin 1.1 H AST 32 ALT 56 Alkaline Phosphatase 87 Troponin I Total Protein 7.7 Albumin 3.3 L Globulin 4.4 H Albumin/Globulin Ratio 0.7 L COVID-19 Eval Order Influ A Molecular Assay Influ B Molecular Assay SARS-CoV-2, RNA, NAAT 07/20/20 11:37 WBC RBC Hgb Hct MCV MCH MCHC RDW Std Deviation RDW Coeff of Nanette Plt Count MPV Immature Gran % (Auto) Neut % (Auto) Lymph % (Auto) [place] % (Auto) Eos % (Auto) Baso % (Auto) Neut # (Auto) Lymph # (Auto) [place] # (Auto) Eos # (Auto) Baso # (Auto) Immature Gran # (Auto) PT INR APTT PTT Ratio D-Dimer Sodium Potassium Chloride Carbon Dioxide Anion Gap BUN Creatinine Est Cr Clr Drug Dosing Est GFR ( Amer) Est GFR (Non-Af Amer) BUN/Creatinine Ratio Glucose POC Glucose 186 H Estimat Average Glucose Hemoglobin A1c Lactate Calcium Magnesium Total Bilirubin AST ALT Alkaline Phosphatase Troponin I Total Protein Albumin Globulin Albumin/Globulin Ratio COVID-19 Eval Order Influ A Molecular Assay Influ B Molecular Assay SARS-CoV-2, RNA, NAAT PG Care Time/CCT Total # of Minutes Spent Total Time Spent with Patient: Total time spent is greater than 50% in coordination of care (as documented) at patient's floor/unit and/or counseling patient: Coding Level of Care Code 23713 Subseq Hosp Care Lvl 3 Diagnoses Acute respiratory failure with hypoxia J96.01 Pneumonia due to 2019 novel coronavirus U07.1; J12.89 Type 2 diabetes mellitus E11.9 Diabetes mellitus terminal manager insulin use: without retirement use Diabetes mellitus complication status: without complication Dyslipidemia E78.5 Gastroesophageal reflux disease K21.9 Esophagitis presence: without esophagitis CAD, multiple vessel I25.10 Hypertension I10 Hypertension type: essential hypertension Morbid obesity with BMI of 40.0-44.9, adult E66.01; Z68.41 Pulmonary nodule R91.1 DVT prophylaxis Z29.9 (1) Type 2 diabetes mellitus Diabetes mellitus terminal manager insulin use: without retirement use Diabetes mellitus complication status: without complication Qualified Code(s): E11.9 - Type 2 diabetes mellitus without complications (2) Gastroesophageal reflux disease Esophagitis presence: without esophagitis Qualified Code(s): K21.9 - Gastro- esophageal reflux disease without esophagitis (3) Hypertension Hypertension type: essential hypertension Qualified Code(s): I10 - Essential (primary) hypertension
[2020-07-20] MEDS ORDERED: REMDESIVIR 200 MG in SODIUM CHLORIDE 0.9% 210 ML IV ONE (13:00)
[2020-07-20] MEDS: SODIUM CHLORIDE 0.9% 10ML FLUSH IV SCH (13:19)
[2020-07-20] MEDS: guaiFENesin 600 MG TABCR PO SCH ×2 (13:19→20:34)
[2020-07-20] MEDS ORDERED: ALBUTEROL HFA 8 GM INHALER INH PRN (13:31)
--- NOTE | 2020-07-20 18:27 | Electrocardiogram Report ---
Test Reason : Blood Pressure : / mmHG Vent. Rate : 097 BPM Atrial Rate : 097 BPM P-R Int : 162 ms QRS Dur : 072 ms QT Int : 310 ms P-R-T Axes : 043 -09 069 degrees QTc Int : 393 ms Poor data quality, interpretation may be adversely affected Normal sinus rhythm Nonspecific ST abnormality Abnormal ECG When compared with ECG of 24-SEP-2018 07:50, No significant change was found Confirmed by Carlos Hernández ([id number]) on 07/20/2020 6:27:01 PM Referred By: REFERRED SELF Confirmed By:Dallas Hernández
[2020-07-20] MEDS: SIMVASTATIN 40 MG TAB PO SCH (20:34)
[2020-07-21 08:05] LABS: Basophils # (auto) 0.02 K/uL (0-0.2); Basophils % (auto) 0.1 %; Eosinophils # (auto) 0.01 K/uL (0-0.5); Eosinophils % (auto) 0.1 %; Hematocrit (blood only) 36.5 % (42-52); Hemoglobin 12.3 g/dL (14.0-18.0); Immature Granulocytes # (auto) 0.03 K/uL (0.00-0.02); Immature Granulocytes % (auto) 0.2 %; Lymphocytes # (auto) 1.27 K/uL (1.2-3.4); Lymphocytes % (auto) 8.9 %; Mean Corpuscular Hemoglobin 28.7 pg (25-34); Mean Corpuscular Hgb Conc 33.7 g/dL (32-36); Mean Corpuscular Volume 85.1 fL (80-100); Monocytes % (auto) 4.2 %; Neutrophils # (auto) 12.36 K/uL (1.4-6.5); Neutrophils % (auto) 86.5 %; Platelet Count 249 K/uL (130-400); RDW Coefficient of Variation 14.9 % (11.5-14.5); Red Blood Count 4.29 M/uL (4.7-6.1); White Blood Count 14.29 K/uL (4.8-10.8)
[2020-07-21 08:44] LABS: Albumin Globulin Ratio 0.7 (0.9-2); Albumin Level 2.9 gm/dl (3.4-5.0); BUN Creatinine Ratio 23.2 (10-20); Bilirubin,Total 0.7 mg/dl (0.2-1); Calcium 8.7 mg/dl (8.5-10.1); Creatinine Clr Calc Pharmacy 63.5 ml/min; Est GFR (African American) 71.7; Est GFR (Non-African American) 61.8; Globulin 4.3 gm/dl (2.5-4.0); Magnesium 2.5 mg/dl (1.8-2.4); Total Protein 7.2 gm/dl (6.4-8.2)
[2020-07-21 09:24] LABS: D Dimer 520 ug/L FEU (0-500)
[2020-07-21] MEDS: INSULIN ASPART 100 UNITS/ML 3 ML PEN SC SCH ×4 (09:33→21:04)
[2020-07-21] MEDS: ASPIRIN 81 MG ECTAB PO SCH (09:33)
[2020-07-21] MEDS: guaiFENesin 600 MG TABCR PO SCH ×2 (09:34→20:56)
[2020-07-21] MEDS: CLOPIDOGREL BISULFATE 75 MG TAB PO SCH (09:34)
[2020-07-21] MEDS: METOPROLOL SUCC 25MG EXT REL TAB PO SCH ×2 (09:34→21:01)
[2020-07-21] MEDS: PANTOprazole 40 MG TAB PO SCH (09:34)
[2020-07-21] MEDS: dexAMETHasone 6 MG in SYRINGE 0 ML IV SCH (09:35)
[2020-07-21] MEDS: ENOXAPARIN INJ 60 MG/0.6 ML SYR SQ SCH ×2 (09:35→20:55)
[2020-07-21] MEDS: ZINC SULFATE 220 MG CAPSULE PO SCH (09:35)
[2020-07-21] MEDS: AZITHROMYCIN 500 MG in DEXTROSE 5% 250 ML IV SCH (09:43)
--- NOTE | 2020-07-21 11:00 | XRay Report ---
XR chest 1V portable CLINICAL HISTORY: COVID, worsening hypoxia COMPARISON STUDY: Chest radiograph and chest CT July 19, 2020. FINDINGS: Mild cardiomegaly is noted without evidence for pulmonary edema. There is no pneumothorax o r pleural effusion. Moderate bilateral airspace opacities have mildly increased since prior exam. IMPRESSION: Mild increase in moderate bilateral airspace opacities consistent with an infectious proc ess. ACT 112: Negative or not required by law. Electronically signed by: Reuben James M.D. 07/21/2020 10:59 AM
[2020-07-21] MEDS: REMDESIVIR 100 MG in SODIUM CHLORIDE 0.9% 230 ML IV SCH (12:44)
[2020-07-21] MEDS: SODIUM CHLORIDE 0.9% 10ML FLUSH IV SCH (13:55)
[2020-07-21] MEDS: MONTELUKAST SODIUM 10 MG TABLET PO SCH (20:57)
[2020-07-21] MEDS: SIMVASTATIN 40 MG TAB PO SCH (21:03)
--- NOTE | 2020-07-21 22:50 | Hospitalist Progress Note ---
Date of Service July 21, 2020 Assessment & Plan (1) Acute respiratory failure with hypoxia: 2nd COVID-19. see below. NC O2 to keep sats >90%. pulm toilet. self-proning as tolerated. cont steroids, zithromax, remdesivir, serial ast/alt, zinc, etc. (2) Pneumonia due to 2019 novel coronavirus: Dexamethasone 6 mg IV daily x 10 days. Day #3 of such. Plasma discussed with patient - he is 8-10 days into illness - likely not to benefit thus defer. ?benefit of remdesivir - uncertain benefit but given his worsening while awaiting admission from ER I elected to initiate. Day #2 of 5 today. AST/ALT minimally elevated - likely transaminitis from COVID - but will push on with remdesivir. Azithromycin 500 mg IV daily for now although procal normal. Day #2 today. Procal wnl - defer on broader abx for now despite cxr findings but low threshold for adding them if necessary. Ventolin HFA prn. Zinc sulfate 220 mg daily. self-proning. flutter valve. incentive spirometry. (3) Type 2 diabetes mellitus: Hold Metformin. NovoLog coverage per scale. Likely to need basal insulin but thus far BSGs acceptable. BSGs ac/hs. (4) Dyslipidemia: Continue simvastatin. Follow ast/alt w/ remdesivir. Mild elevation in transaminases but simvastatin may provide some anti- inflammatory benefit. Repeat ast/alt am. (5) Gastroesophageal reflux disease: Continue pantoprazole 40 mg every morning (6) CAD, multiple vessel: continue aspirin, clopidogrel, metoprolol succinate, DESTIN. trop negative. no ACS. (7) Hypertension: controlled BPs low-normal thus holding DESTIN continue beta shayne (8) Morbid obesity with BMI of 40.0-44.9, adult: BMI 41.8 (9) Pulmonary nodule: Left upper lobe pulmonary nodule is increased in size from 9 mm in 2013 to 11 mm. f/u needed after d/c - refer to pulmonary nodule program. (10) Transaminitis: likely 2nd COVID-19 infection serial labs (11) DVT prophylaxis: lovenox 50mg BID due to increased VTE risk w/ COVID pt's daughter updated by phone yesterday left message for her tonight on voicemail will need PT/OT Admission and Anticipated Discharge Date Admission Date: July 19, 2020 Subjective patient feels better than yesterday. he has been diligent about self-proning - even sleeping prone at times and he is noticing some improvement in breathing w/ such. coughing - dry, no sputum. dyspnea at rest better. still with [facility]. tele overnight stable. still with [id number] appetite. smell/taste continuing to improve. nothing else new overnight although does have mild increase in FiO2 requirement. Tm 39 yesterday. Review of Systems Constitutional: + fever, + fatigue and + anorexia; no body aches Respiratory: + cough and + dyspnea on exertion; no pain on inspiration and no wheezing Cardiovascular: no chest pain Gastrointestinal: no abdominal pain, no vomiting and no diarrhea/loose stools Physical Exam Constitutional: + obese; no acute distress and no altered mental status ENMT: external ear and nose normal, oropharynx normal Respiratory: + cough; no respiratory distress Auscultation: + crackles (bases); no wheezes Cardiovascular: Rate/Rhythm: regular rate and regular rhythm Heart Sounds: normal S1 and normal S2; no murmur Vessels: posterior tibial pulses present and dorsalis pedis pulses present; no JVD Extremities: no edema Gastrointestinal (Abdomen): normal bowel sounds, soft, nontender, no hepatosplenomegaly Psychiatric: A+Ox3, euthymic affect Results & Data Results & Data ([facility]) Vital Signs (Past 12 Hours) Vital Signs Temp Pulse Pulse Resp BP Pulse Ox 07/21/20 21:10 62 20 91 07/21/20 19:13 36.7 C 59 L 20 134/65 95 07/21/20 16:01 60 07/21/20 15:17 36.6 C 60 21 137/65 95 07/21/20 11:25 37.0 C 68 22 125/76 95 Laboratory Results Laboratory Results - last 24 hr 07/21/20 07/21/20 07/21/20 07:16 07:16 07:16 WBC 14.29 H RBC 4.29 L Hgb 12.3 L Hct 36.5 L MCV 85.1 MCH 28.7 MCHC 33.7 RDW Std Deviation 47.0 H RDW Coeff of Nanette 14.9 H Plt Count 249 MPV 10.0 Immature Gran % (Auto) 0.2 Neut % (Auto) 86.5 Lymph % (Auto) 8.9 Sebastian % (Auto) 4.2 Eos % (Auto) 0.1 Baso % (Auto) 0.1 Neut # (Auto) 12.36 H Lymph # (Auto) 1.27 Sebastian # (Auto) 0.60 H Eos # (Auto) 0.01 Baso # (Auto) 0.02 Immature Gran # (Auto) 0.03 H D-Dimer 520 H* Sodium 136 Potassium 4.0 Chloride 103 Carbon Dioxide 26 Anion Gap 8.0 BUN 28 H Creatinine 1.22 Est Cr Clr Drug Dosing 63.5 Est GFR ( Amer) 71.7 Est GFR (Non-Af Amer) 61.8 BUN/Creatinine Ratio 23.2 H Glucose 103 H POC Glucose Calcium 8.7 Magnesium 2.5 H Total Bilirubin 0.7 AST 50 H ALT 74 Alkaline Phosphatase 100 Total Creatine Kinase 113 Total Protein 7.2 Albumin 2.9 L Globulin 4.3 H Albumin/Globulin Ratio 0.7 L 07/21/20 07/21/20 07/21/20 07:43 11:23 16:24 WBC RBC Hgb Hct MCV MCH MCHC RDW Std Deviation RDW Coeff of Nanette Plt Count MPV Immature Gran % (Auto) Neut % (Auto) Lymph % (Auto) Sebastian % (Auto) Eos % (Auto) Baso % (Auto) Neut # (Auto) Lymph # (Auto) Sebastian # (Auto) Eos # (Auto) Baso # (Auto) Immature Gran # (Auto) D-Dimer Sodium Potassium Chloride Carbon Dioxide Anion Gap BUN Creatinine Est Cr Clr Drug Dosing Est GFR ( Amer) Est GFR (Non-Af Amer) BUN/Creatinine Ratio Glucose POC Glucose 113 H 133 H 164 H Calcium Magnesium Total Bilirubin AST ALT Alkaline Phosphatase Total Creatine Kinase Total Protein Albumin Globulin Albumin/Globulin Ratio 07/21/20 20:43 WBC RBC Hgb Hct MCV MCH MCHC RDW Std Deviation RDW Coeff of Nanette Plt Count MPV Immature Gran % (Auto) Neut % (Auto) Lymph % (Auto) Sebastian % (Auto) Eos % (Auto) Baso % (Auto) Neut # (Auto) Lymph # (Auto) Sebastian # (Auto) Eos # (Auto) Baso # (Auto) Immature Gran # (Auto) D-Dimer Sodium Potassium Chloride Carbon Dioxide Anion Gap BUN Creatinine Est Cr Clr Drug Dosing Est GFR ( Amer) Est GFR (Non-Af Amer) BUN/Creatinine Ratio Glucose POC Glucose 170 H Calcium Magnesium Total Bilirubin AST ALT Alkaline Phosphatase Total Creatine Kinase Total Protein Albumin Globulin Albumin/Globulin Ratio cxr. increasing b/l infiltrates PG Care Time/CCT Total # of Minutes Spent Total Time Spent with Patient: Total time spent is greater than 50% in coordination of care (as documented) at patient's floor/unit and/or counseling patient: Coding Level of Care Code 98155 Subseq Hosp Care Lvl 3 Diagnoses Acute respiratory failure with hypoxia J96.01 Pneumonia due to 2019 novel coronavirus U07.1; J12.89 Type 2 diabetes mellitus E11.9 Diabetes mellitus complication status: without complication Diabetes mellitus termination clerk insulin use: without termination clerk use Dyslipidemia E78.5 Gastroesophageal reflux disease K21.9 Esophagitis presence: without esophagitis CAD, multiple vessel I25.10 Hypertension I10 Hypertension type: essential hypertension Morbid obesity with BMI of 40.0-44.9, adult E66.01; Z68.41 Pulmonary nodule R91.1 Transaminitis R74.01 DVT prophylaxis Z29.9 (1) Type 2 diabetes mellitus Diabetes mellitus complication status: without complication Diabetes mellitus termination clerk insulin use: without termination clerk use Qualified Code(s): E11.9 - Type 2 diabetes mellitus without complications (2) Gastroesophageal reflux disease Esophagitis presence: without esophagitis Qualified Code(s): K21.9 - Gastro- esophageal reflux disease without esophagitis (3) Hypertension Hypertension type: essential hypertension Qualified Code(s): I10 - Essential (primary) hypertension
[2020-07-22] MEDS: AZITHROMYCIN 500 MG in DEXTROSE 5% 250 ML IV SCH (08:39)
[2020-07-22] MEDS: dexAMETHasone 6 MG in SYRINGE 0 ML IV SCH (08:40)
[2020-07-22] MEDS: ENOXAPARIN INJ 60 MG/0.6 ML SYR SQ SCH ×2 (08:41→21:03)
[2020-07-22] MEDS: PANTOprazole 40 MG TAB PO SCH (08:41)
[2020-07-22] MEDS: METOPROLOL SUCC 25MG EXT REL TAB PO SCH ×2 (08:43→21:06)
[2020-07-22] MEDS: CLOPIDOGREL BISULFATE 75 MG TAB PO SCH (08:43)
[2020-07-22] MEDS: ZINC SULFATE 220 MG CAPSULE PO SCH (08:43)
[2020-07-22] MEDS: guaiFENesin 600 MG TABCR PO SCH ×2 (08:43→21:04)
[2020-07-22] MEDS: ASPIRIN 81 MG ECTAB PO SCH (08:43)
[2020-07-22] MEDS: INSULIN ASPART 100 UNITS/ML 3 ML PEN SC SCH ×4 (08:46→21:05)
[2020-07-22 09:14] LABS: BUN Creatinine Ratio 26.3 (10-20); Calcium 8.6 mg/dl (8.5-10.1); Creatinine Clr Calc Pharmacy 76.7 ml/min; Est GFR (Non-African American) 77.7; Magnesium 2.9 mg/dl (1.8-2.4); Phosphorus 2.7 mg/dl (2.5-4.9); Potassium 4.1 mmol/L (3.5-5.1)
--- NOTE | 2020-07-22 09:20 | Hospitalist Progress Note ---
Date of Service July 22, 2020 Assessment & Plan (1) Acute respiratory failure with hypoxia: 2nd COVID-19. NC O2 to keep sats >90%. (2) Pneumonia due to 2019 novel coronavirus: Dexamethasone 6 mg IV daily x 10 days. not a candidate for plasma remdesivir - per protocol Azithromycin 500 mg IV daily to cover for secondary pneumonia Ventolin HFA prn. Zinc sulfate 220 mg daily. flutter valve. incentive spirometry. (3) Type 2 diabetes mellitus: Hold Metformin. NovoLog coverage per scale. Likely to need basal insulin. BSGs ac/hs. (4) Dyslipidemia: Continue simvastatin. Follow ast/alt w/ remdesivir. (5) Gastroesophageal reflux disease: Continue pantoprazole 40 mg every morning (6) CAD, multiple vessel: continue aspirin, clopidogrel, metoprolol succinate, DESTIN. trop negative. no ACS. (7) Hypertension: controlled (8) Morbid obesity with BMI of 40.0-44.9, adult: BMI 41.8 (9) Pulmonary nodule: Left upper lobe pulmonary nodule is increased in size from 9 mm in 2013 to 11 mm. f/u needed. (10) DVT prophylaxis: lovenox 50mg BID due to increased VTE risk w/ COVID pt's daughter updated by phone today Admission and Anticipated Discharge Date Admission Date: July 19, 2020 Subjective She feels improved the determined to be days he is getting better every day is on oxygen mask at 6 L Review of Systems Review of Systems: Mild distress and fatigue no headache, blurry or double vision no speech or swallowing issues no chest pain, pressure or palpitations Persistent shortness of breath, nonproductive cough or wheezes no abdominal pain, nausea or vomiting, diarrhea or constipation no dysuria, hematuria or frequency no focal joint pain or swelling no back pain, CVA tenderness or radicular pain no bruising, bleeding or rashes no focal signs of weakness or numbness or altered sensation no complaints of anxiety or depression.. Physical Exam Physical Exam: The patient appeared well nourished and normally developed. Vital signs as documented. Head exam is normocephalic atraumatic no scleral icterus Neck is without JVD, thyromegaly, or carotid bruits. Lungs are coarse breath sounds bilaterally but good air movement Cardiac exam, Rhythm is regular.. No murmurs, rubs or gallops. Abdominal exam reveals normal bowel sounds, soft non tender, no masses Extremities are nonedematous and both pedal pulses are present Neurologic exam is alert and oriented, no focal loss of strength or sensation Skin is without bruises or rashes Psychologically is without concerns for anxiety or depression. Results & Data Results & Data ([facility]) Vital Signs (Past 12 Hours) Vital Signs Temp Pulse Pulse Resp BP Pulse Ox 07/22/20 07:50 97.7 F 54 L 18 111/58 L 92 07/22/20 07:48 50 L 07/22/20 04:00 97.5 F L 57 L 20 111/52 L 91 07/22/20 00:14 98.1 F 52 L 20 111/55 L 92 PG Care Time/CCT Total # of Minutes Spent Total Time Spent with Patient: Total time spent is greater than 50% in coordination of care (as documented) at patient's floor/unit and/or counseling patient: Coding Level of Care Code 23987 Subseq Hosp Care Lvl 3 Diagnoses Acute respiratory failure with hypoxia J96.01 Pneumonia due to 2019 novel coronavirus U07.1; J12.89 Type 2 diabetes mellitus E11.9 Diabetes mellitus complication status: without complication Diabetes mellitus predatory animal exterminator insulin use: without predatory animal exterminator use Dyslipidemia E78.5 Gastroesophageal reflux disease K21.9 Esophagitis presence: without esophagitis CAD, multiple vessel I25.10 Hypertension I10 Hypertension type: essential hypertension Morbid obesity with BMI of 40.0-44.9, adult E66.01; Z68.41 Pulmonary nodule R91.1 DVT prophylaxis Z29.9 (1) Type 2 diabetes mellitus Diabetes mellitus complication status: without complication Diabetes mellitus predatory animal exterminator insulin use: without predatory animal exterminator use Qualified Code(s): E11.9 - Type 2 diabetes mellitus without complications (2) Gastroesophageal reflux disease Esophagitis presence: without esophagitis Qualified Code(s): K21.9 - Gastro- esophageal reflux disease without esophagitis (3) Hypertension Hypertension type: essential hypertension Qualified Code(s): I10 - Essential (primary) hypertension
[2020-07-22] MEDS: REMDESIVIR 100 MG in SODIUM CHLORIDE 0.9% 230 ML IV SCH (12:02)
[2020-07-22] MEDS: SODIUM CHLORIDE 0.9% 10ML FLUSH IV SCH (14:16)
[2020-07-22] MEDS: MONTELUKAST SODIUM 10 MG TABLET PO SCH (21:06)
[2020-07-22] MEDS: SIMVASTATIN 40 MG TAB PO SCH (21:06)
[2020-07-23 08:53] LABS: Alanine Aminotransferase 76 U/L (12-78); Aspartate Aminotransferase 37 U/L (15-37)
[2020-07-23] MEDS: dexAMETHasone 6 MG in SYRINGE 0 ML IV SCH (09:01)
[2020-07-23] MEDS: guaiFENesin 600 MG TABCR PO SCH ×2 (09:02→21:25)
[2020-07-23] MEDS: AZITHROMYCIN 500 MG in DEXTROSE 5% 250 ML IV SCH (09:02)
[2020-07-23] MEDS: ASPIRIN 81 MG ECTAB PO SCH (09:02)
[2020-07-23] MEDS: PANTOprazole 40 MG TAB PO SCH (09:03)
[2020-07-23] MEDS: METOPROLOL SUCC 25MG EXT REL TAB PO SCH ×2 (09:03→21:25)
[2020-07-23] MEDS: ZINC SULFATE 220 MG CAPSULE PO SCH (09:03)
[2020-07-23] MEDS: CLOPIDOGREL BISULFATE 75 MG TAB PO SCH (09:03)
[2020-07-23] MEDS: ENOXAPARIN INJ 60 MG/0.6 ML SYR SQ SCH ×2 (09:05→21:24)
[2020-07-23] MEDS: INSULIN ASPART 100 UNITS/ML 3 ML PEN SC SCH ×4 (09:24→21:29)
[2020-07-23] MEDS ORDERED: SODIUM CHLORIDE 0.65% NA SOLN 45 ML (OCEAN) PRN (12:21)
[2020-07-23] MEDS: REMDESIVIR 100 MG in SODIUM CHLORIDE 0.9% 230 ML IV SCH (12:34)
[2020-07-23] MEDS: SODIUM CHLORIDE 0.9% 10ML FLUSH IV SCH (14:37)
--- NOTE | 2020-07-23 17:47 | Hospitalist Progress Note ---
Date of Service July 23, 2020 Assessment & Plan (1) Acute respiratory failure with hypoxia: 2nd COVID-19. . NC O2 to keep sats >90%. pulm toilet. self-proning as tolerated. cont steroids, zithromax, remdesivir, serial ast/alt, zinc, etc. (2) Pneumonia due to 2019 novel coronavirus: Dexamethasone 6 mg IV daily x 10 days. Day #3 of such. Plasma discussed with patient - he is 8-10 days into illness - likely not to benefit thus defer. ?benefit of remdesivir - uncertain benefit but given his worsening while awaiting admission from ER I elected to initiate. Day #2 of 5 today. AST/ALT minimally elevated - likely transaminitis from COVID - but will push on with remdesivir. Azithromycin 500 mg daily complete 5 days Procal wnl - Ventolin HFA prn. Zinc sulfate 220 mg daily. self-proning. flutter valve. incentive spirometry. (3) Type 2 diabetes mellitus: Hold Metformin. NovoLog coverage per scale. Likely to need basal insulin but thus far BSGs acceptable. BSGs ac/hs. (4) Dyslipidemia: Continue simvastatin. Follow ast/alt w/ remdesivir. Mild elevation in transaminases but simvastatin may provide some anti- inflammatory benefit. Repeat ast/alt am. (5) Gastroesophageal reflux disease: Continue pantoprazole 40 mg every morning (6) CAD, multiple vessel: continue aspirin, clopidogrel, metoprolol succinate, DESTIN. trop negative. no ACS. (7) Hypertension: controlled BPs low-normal thus holding DESTIN continue beta shayne (8) Morbid obesity with BMI of 40.0-44.9, adult: BMI 41.8 (9) Pulmonary nodule: Left upper lobe pulmonary nodule is increased in size from 9 mm in 2012 to 11 mm. f/u needed after d/c - refer to pulmonary nodule program. (10) DVT prophylaxis: lovenox 50mg BID due to increased VTE risk w/ COVID pt's daughter updated by phone yesterday left message for her tonight on voicemail will need PT/OT, walked 85 feet with hypoxia Admission and Anticipated Discharge Date Admission Date: July 19, 2020 Subjective he feels improved, he is determined to beat this, now variable between 4 and 6 liters oxymask to keep saturation at rest >88%. He was on room air when I entered the room, and without symptoms but when checked had a pulse ox of 83%. He was told to limit time off oxygen Review of Systems Review of Systems: Mild distress and fatigue no headache, blurry or double vision no speech or swallowing issues no chest pain, pressure or palpitations Persistent shortness of breath, nonproductive cough or wheezes no abdominal pain, nausea or vomiting, diarrhea or constipation no dysuria, hematuria or frequency no focal joint pain or swelling no back pain, CVA tenderness or radicular pain no bruising, bleeding or rashes no focal signs of weakness or numbness or altered sensation no complaints of anxiety or depression.. Physical Exam Physical Exam: The patient appeared well nourished and normally developed. Vital signs as documented. Head exam is normocephalic atraumatic no scleral icterus Neck is without JVD, thyromegaly, or carotid bruits. Lungs are coarse breath sounds bilaterally but good air movement Cardiac exam, Rhythm is regular.. No murmurs, rubs or gallops. Abdominal exam reveals normal bowel sounds, soft non tender, no masses Extremities are nonedematous and both pedal pulses are present Neurologic exam is alert and oriented, no focal loss of strength or sensation Skin is without bruises or rashes Psychologically is without concerns for anxiety or depression. Results & Data Results & Data ([facility]) Vital Signs (Past 12 Hours) Vital Signs Temp Pulse Resp BP Pulse Ox 07/23/20 15:50 97.5 F L 53 L 19 139/70 92 07/23/20 11:45 98.2 F 57 L 20 115/76 95 07/23/20 07:30 97.7 F 51 L 18 132/82 91 PG Care Time/CCT Total # of Minutes Spent Total Time Spent with Patient: Total time spent is greater than 50% in coordination of care (as documented) at patient's floor/unit and/or counseling patient: Coding Level of Care Code 71818 Subseq Hosp Care Lvl 3 Diagnoses Acute respiratory failure with hypoxia J96.01 Pneumonia due to 2019 novel coronavirus U07.1; J12.89 Type 2 diabetes mellitus E11.9 Diabetes mellitus jail insulin use: without jail use Diabetes mellitus complication status: without complication Dyslipidemia E78.5 Gastroesophageal reflux disease K21.9 Esophagitis presence: without esophagitis CAD, multiple vessel I25.10 Hypertension I10 Hypertension type: essential hypertension Morbid obesity with BMI of 40.0-44.9, adult E66.01; Z68.41 Pulmonary nodule R91.1 DVT prophylaxis Z29.9 (1) Type 2 diabetes mellitus Diabetes mellitus resume specialist insulin use: without jail use Diabetes mellitus complication status: without complication Qualified Code(s): E11.9 - Type 2 diabetes mellitus without complications (2) Gastroesophageal reflux disease Esophagitis presence: without esophagitis Qualified Code(s): K21.9 - Gastro- esophageal reflux disease without esophagitis (3) Hypertension Hypertension type: essential hypertension Qualified Code(s): I10 - Essential (primary) hypertension
[2020-07-23] MEDS: SIMVASTATIN 40 MG TAB PO SCH (21:25)
[2020-07-23] MEDS: MONTELUKAST SODIUM 10 MG TABLET PO SCH (21:25)
[2020-07-24 07:43] LABS: Alanine Aminotransferase 68 U/L (12-78); Aspartate Aminotransferase 28 U/L (15-37)
[2020-07-24] MEDS: dexAMETHasone 6 MG in SYRINGE 0 ML IV SCH (09:26)
[2020-07-24] MEDS: AZITHROMYCIN 500 MG in DEXTROSE 5% 250 ML IV SCH (09:26)
[2020-07-24] MEDS: CLOPIDOGREL BISULFATE 75 MG TAB PO SCH (09:27)
[2020-07-24] MEDS: PANTOprazole 40 MG TAB PO SCH (09:27)
[2020-07-24] MEDS: ASPIRIN 81 MG ECTAB PO SCH (09:27)
[2020-07-24] MEDS: guaiFENesin 600 MG TABCR PO SCH ×2 (09:27→21:31)
[2020-07-24] MEDS: ZINC SULFATE 220 MG CAPSULE PO SCH (09:27)
[2020-07-24] MEDS: METOPROLOL SUCC 25MG EXT REL TAB PO SCH ×2 (09:28→21:31)
[2020-07-24] MEDS: ENOXAPARIN INJ 60 MG/0.6 ML SYR SQ SCH ×2 (09:29→21:29)
[2020-07-24] MEDS: INSULIN ASPART 100 UNITS/ML 3 ML PEN SC SCH ×4 (09:30→22:04)
--- NOTE | 2020-07-24 13:02 | Hospitalist Progress Note ---
Date of Service July 24, 2020 Assessment & Plan (1) Acute respiratory failure with hypoxia: 2nd COVID-19. NC O2 to keep sats >90%. He is titrated to 3 to 4 L/min range pulm toilet. self-proning as tolerated. cont steroids, stop zithromax 07/24/2020, remdesivir completed course, zinc, etc. (2) Pneumonia due to 2019 novel coronavirus: Dexamethasone 6 mg IV daily till hypoxia resolved Plasma discussed with patient - he is 8-10 days into illness - likely not to benefit thus defer. Completed course of remdesivir transaminitis from COVID -minor and resolved Azithromycin 500 mg daily completed Procal wnl - Ventolin HFA prn. Zinc sulfate 220 mg daily. self-proning. flutter valve. incentive spirometry. (3) Type 2 diabetes mellitus: Hold Metformin. NovoLog coverage per scale. Leukosis are more difficult to control while on steroids Likely to need basal insulin but thus far BSGs acceptable. BSGs ac/hs. (4) Dyslipidemia: Continue simvastatin. Follow ast/alt w/ remdesivir. Mild elevation in transaminases but simvastatin may provide some anti- inflammatory benefit. Repeat ast/alt am. (5) Gastroesophageal reflux disease: Continue pantoprazole 40 mg every morning (6) CAD, multiple vessel: continue aspirin, clopidogrel, metoprolol succinate, DESTIN. trop negative. no ACS. (7) Hypertension: controlled BPs low-normal thus holding DESTIN continue beta shayne (8) Morbid obesity with BMI of 40.0-44.9, adult: BMI 41.8 (9) Pulmonary nodule: Left upper lobe pulmonary nodule is increased in size from 9 mm in 2012 to 11 mm. f/u needed after d/c - refer to pulmonary nodule program. (10) DVT prophylaxis: lovenox 50mg BID due to increased VTE risk w/ COVID left message for her on voicemail Continue PT/OT Admission and Anticipated Discharge Date Admission Date: July 19, 2020 Subjective Patient has no new complaints or problems he still remains short of breath he does have a productive cough using incentive spirometer and proning himself as much as he possibly can Review of Systems Review of Systems: Mild distress and fatigue no headache, blurry or double vision no speech or swallowing issues no chest pain, pressure or palpitations Persistent shortness of breath, productive cough or wheezes no abdominal pain, nausea or vomiting, diarrhea or constipation no dysuria, hematuria or frequency no focal joint pain or swelling no back pain, CVA tenderness or radicular pain no bruising, bleeding or rashes no focal signs of weakness or numbness or altered sensation no complaints of anxiety or depression.. Physical Exam Physical Exam: The patient appeared well nourished and normally developed. Vital signs as documented. Head exam is normocephalic atraumatic no scleral icterus Neck is without JVD, thyromegaly, or carotid bruits. Lungs are coarse breath sounds bilaterally but good air movement Cardiac exam, Rhythm is regular.. No murmurs, rubs or gallops. Abdominal exam reveals normal bowel sounds, soft non tender, no masses Extremities are nonedematous and both pedal pulses are present Neurologic exam is alert and oriented, no focal loss of strength or sensation Skin is without bruises or rashes Psychologically is without concerns for anxiety or depression. Results & Data Results & Data ([facility]) Vital Signs (Past 12 Hours) Vital Signs Temp Pulse Pulse Resp BP BP Pulse Ox 07/24/20 11:38 98.4 F 58 L 20 134/64 93 07/24/20 08:00 49 L 07/24/20 07:55 97.5 F L 52 L 18 133/71 91 07/24/20 02:56 97.7 F 46 L 19 116/55 L 92 PG Care Time/CCT Total # of Minutes Spent Total Time Spent with Patient: Total time spent is greater than 50% in coordination of care (as documented) at patient's floor/unit and/or counseling patient: Coding Level of Care Code 02092 Subseq Hosp Care Lvl 2 Diagnoses Acute respiratory failure with hypoxia J96.01 Pneumonia due to 2019 novel coronavirus U07.1; J12.89 Type 2 diabetes mellitus E11.9 Diabetes mellitus correction insulin use: without correction use Diabetes mellitus complication status: without complication Dyslipidemia E78.5 Gastroesophageal reflux disease K21.9 Esophagitis presence: without esophagitis CAD, multiple vessel I25.10 Hypertension I10 Hypertension type: essential hypertension Morbid obesity with BMI of 40.0-44.9, adult E66.01; Z68.41 Pulmonary nodule R91.1 DVT prophylaxis Z29.9 (1) Type 2 diabetes mellitus Diabetes mellitus intermediate card tender insulin use: without intermediate card tender use Diabetes mellitus complication status: without complication Qualified Code(s): E11.9 - Type 2 diabetes mellitus without complications (2) Gastroesophageal reflux disease Esophagitis presence: without esophagitis Qualified Code(s): K21.9 - Gastro- esophageal reflux disease without esophagitis (3) Hypertension Hypertension type: essential hypertension Qualified Code(s): I10 - Essential (primary) hypertension
[2020-07-24] MEDS: REMDESIVIR 100 MG in SODIUM CHLORIDE 0.9% 230 ML IV SCH (13:41)
[2020-07-24] MEDS: SODIUM CHLORIDE 0.9% 10ML FLUSH IV SCH (14:41)
[2020-07-24] MEDS: MONTELUKAST SODIUM 10 MG TABLET PO SCH (21:31)
[2020-07-24] MEDS: SIMVASTATIN 40 MG TAB PO SCH (21:32)
[2020-07-25 06:53] LABS: Alanine Aminotransferase 69 U/L (12-78); Aspartate Aminotransferase 27 U/L (15-37)
[2020-07-25] MEDS: guaiFENesin 600 MG TABCR PO SCH (08:46)
[2020-07-25] MEDS: dexAMETHasone 6 MG in SYRINGE 0 ML IV SCH (08:46)
[2020-07-25] MEDS: PANTOprazole 40 MG TAB PO SCH (08:47)
[2020-07-25] MEDS: CLOPIDOGREL BISULFATE 75 MG TAB PO SCH (08:47)
[2020-07-25] MEDS: ZINC SULFATE 220 MG CAPSULE PO SCH (08:47)
[2020-07-25] MEDS: ASPIRIN 81 MG ECTAB PO SCH (08:48)
[2020-07-25] MEDS: ENOXAPARIN INJ 60 MG/0.6 ML SYR SQ SCH (08:48)
[2020-07-25] MEDS: METOPROLOL SUCC 25MG EXT REL TAB PO SCH (08:52)
[2020-07-25] MEDS: INSULIN ASPART 100 UNITS/ML 3 ML PEN SC SCH ×2 (08:54→13:09)
[2020-07-25 11:12] VITALS: BP 136/64; TEMP 97.5
--- NOTE | 2020-07-25 12:34 | Discharge Summary ---
Date of Service July 25, 2020 Admission HPI Per Admitting Provider The patient is a 64-year-old male with past medical history including pulmonary nodule, dyslipidemia, stented coronary artery, diabetes mellitus type 2, cervical lymphadenopathy, GERD, multivessel CAD, hypertension and obesity. The patient initially developed symptoms on July 10, had a telephone visit with his doctor, and was placed on Augmentin. He declined COVID-19 testing at that time since he was already self isolating. Since that time he has developed cough, fevers and muscle aches, and more recently has lost his sense of taste and smell which, makes it more difficult for him to eat now. He went to a local urgent care center today, with the intent of getting a COVID-19 test, however, because of his pulse ox of 90 while he was there, he was sent to the ED for further evaluation. Work-up in the emergency department included the following: Abnormal vital signs showed a temperature of 103.3, and pulse ox 88% on room air. Laboratories: WBC 12.75, hemoglobin 12.9, INR 1.2, glucose 124, D-dimer 720, sodium 134, total bilirubin 1.2, AST 38 and COVID-19 test positivity. Chest x-ray showed bilateral interstitial infiltrates. CT angiography PE protocol was negative for PE, did show findings consistent with viral pneumonia. Left upper lobe pulmonary nodule increased in size from 9 mm in 2012 to 11 mm today. Chronic granulomatous disease was present. Principal Diagnosis acute respiratory failure with hypoxia pneumonia covid infection Discharge Exam The patient appeared to be improved Vital signs as documented. Lungs are rales bilaterally Cardiac exam, Rhythm is regular.. No murmurs, rubs or gallops. Abdominal exam reveals normal bowel sounds, soft non tender, no masses Extremities are nonedematous and both pedal pulses are normal. Neurologic exam is alert and oriented, no focal loss of strength or sensation Skin is without bruises or rashes Psychologically is without concerns for anxiety or depression. Discharge Data Allergies Allergy/AdvReac Type Severity Reaction Status Date / Time No Known Allergies Allergy Verified 07/19/20 20:05 Consultations 07/19/20 22:32 ED Decision to Admit Stat 07/20/20 00:52 Consult Case Management - Discharge Planning Routine Ordered Studies 07/19/20 19:59 CT angio chest PE protocol Stat Hospital Course (1) Acute respiratory failure with hypoxia: 2nd COVID-19. NC O2 to keep sats >90%. He is titrated to 2-4 L/min range cont steroids, stop zithromax 07/24/2020, remdesivir completed course, zinc, etc. (2) Pneumonia due to 2019 novel coronavirus: Dexamethasone 6 mg IV daily till hypoxia resolved Plasma discussed with patient - he is 8-10 days into illness - likely not to benefit thus defer. Completed course of remdesivir transaminitis from COVID -minor and resolved Azithromycin 500 mg daily completed Procal wnl - Will likely need home oxygen for a few weeks Commended isolation at home for 20 days releasing on given instructions of the same (3) Type 2 diabetes mellitus: Resume Metformin. Home diabetic regimen (4) Dyslipidemia: Continue simvastatin. (5) Gastroesophageal reflux disease: Continue pantoprazole 40 mg every morning (6) CAD, multiple vessel: continue aspirin, clopidogrel, metoprolol succinate, DESTIN. trop negative. no ACS. (7) Hypertension: controlled (8) Morbid obesity with BMI of 40.0-44.9, adult: BMI 41.8 4 obesity affects his ventilation (9) Pulmonary nodule: Left upper lobe pulmonary nodule is increased in size from 9 mm in 2012 to 11 mm. f/u needed after d/c - refer to pulmonary nodule program. Total Time Total Time Spent Total Time Spent (In Minutes): It required greater than 30 minutes to prepare this patient for discharge Discharge Plan Discharge Items Patient Disposition: Home - Home Health Services Reason For Visit: PNEUMONIA DUE TO COVID-19 WITH HYPOXIA Discharge Diagnosis: acute respiratory failure with hypoxia secondary to pneumonia secondary to Covid infection Activity: Per Instructions section Activity Comment: no intentional exercise unitl off oxygen Non-emergency contact: Primary Care Provider Call non-emergency contact if: your symptoms worsen and your temperature is above 101 Follow-up/Referrals: Nishant Dawn III, MD [Primary Care Provider] - Diet: Regular and Carb Consistent or DM2 Addtl Attending Provider Instructions: please monitor your symptoms at home if you are more short of breath or develop a fever please return to the hospital Coordinate a video or telephone follow up with your doctor this week wear your oxygen at all times until told not to you should have isolation at home for 20 days from your first symptoms, that means do not come into contact with anyone who has not have covid 19 virus on the 21st day please continue general social distancing and simple mask use Home Isolation COVID-19 Instructions The following information about Home Isolation is from the CDC Website: https://www.cdc.gov/coronavirus/2019-ncov/hcp/pceaclip-ngwmejl-iltwqc.html Stay home except to get medical care People who are mildly ill with COVID-19 are able to isolate at home during their illness. You should restrict activities outside your home, except for getting medical care. Do not go to work, school, or public areas. Avoid using public transportation, ride-sharing, or taxis. Separate yourself from other people and animals in your home People: As much as possible, you should stay in a specific room and away from other people in your home. Also, you should use a separate bathroom, if available. Animals: You should restrict contact with pets and other animals while you are sick with COVID-19, just like you would around other people. Although there have not been reports of pets or other animals becoming sick with COVID-19, it is still recommended that people sick with COVID-19 limit contact with animals until more information is known about the virus. When possible, have another member of your household care for your animals while you are sick. If you are sick with COVID-19, avoid contact with your pet, including petting, snuggling, being kissed or licked, and sharing food. If you must care for your pet or be around animals while you are sick, wash your hands before and after you interact with pets and wear a face mask. Call ahead before visiting your doctor If you have a medical appointment, call the healthcare provider and tell them that you have or may have COVID-19. This will help the healthcare providers office take steps to keep other people from getting infected or exposed. Wear a face mask You should wear a face mask when you are around other people (e.g., sharing a room or vehicle) or pets and before you enter a healthcare providers office. If you are not able to wear a face mask (for example, because it causes trouble breathing), then people who live with you should not stay in the same room with you, or they should wear a face mask if they enter your room. Cover your coughs and sneezes Cover your mouth and nose with a tissue when you cough or sneeze. Throw used tissues in a lined trash can. Immediately wash your hands with soap and water for at least 20 seconds or, if soap and water are not available, clean your hands with an alcohol-based hand wrapping checker that contains at least 60% alcohol. Clean your hands often Wash your hands often with soap and water for at least 20 seconds, especially after blowing your nose, coughing, or sneezing; going to the bathroom; and before eating or preparing food. If soap and water are not readily available, use an alcohol-based hand wrapping checker with at least 60% alcohol, covering all surfaces of your hands and rubbing them together until they feel dry. Soap and water are the best option if hands are visibly dirty. Avoid touching your eyes, nose, and mouth with unwashed hands. Avoid sharing personal household items You should not share dishes, drinking glasses, cups, eating utensils, towels, or bedding with other people or pets in your home. After using these items, they should be washed thoroughly with soap and water. Clean all high-touch surfaces everyday High touch surfaces include counters, tabletops, doorknobs, bathroom fixtures, toilets, phones, keyboards, tablets, and bedside tables. Also, clean any surfaces that may have blood, stool, or body fluids on them. Use a household cleaning spray or wipe, according to the label instructions. Labels contain instructions for safe and effective use of the cleaning product including precautions you should take when applying the product, such as wearing gloves and making sure you have good ventilation during use of the product. Monitor your symptoms Seek prompt medical attention if your illness is worsening (e.g., difficulty breathing).Beforeseeking care, call your healthcare provider and tell them that you have, or are being evaluated for, COVID-19. Put on a face mask before you enter the facility. These steps will help the healthcare providers office to keep other people in the office or waiting room from getting infected or exposed. Ask your healthcare provider to call the local or state health department. Persons who are placed under active monitoring or facilitated self- monitoring should follow instructions provided by their local health department or occupational health professionals, as appropriate. When working with your local health department check their available hours. If you have a medical emergency and need to call 911, notify the dispatch personnel that you have, or are being evaluated for COVID-19. If possible, put on a face mask before emergency medical services arrive. Discontinuing home isolation Patients with confirmed COVID-19 should remain under home isolation precautions until the risk of secondary transmission to others is thought to be low. The decision to discontinue home isolation precautions should be made on a [id number] basis, in consultation with healthcare providers and state and local health departments. Pending Studies at Discharge: No Stand-Alone Forms: My [facility], Smoking Cessation Medications and DC Order Prescriptions: New dexamethasone [Decadron] 6 mg tablet 6 mg PO DAILY Qty: 4 RF: 0 (DME) Oxygen Home Liters Per Minute 1 ea .Route DAILY Qty: 1 RF: 0 Continued clopidogrel 75 mg tablet 75 mg PO QAM Qty: 90 RF: 3 simvastatin 40 mg tablet 40 mg PO HS Qty: 90 RF: 3 lisinopril 20 mg tablet 20 mg PO QAM Qty: 30 RF: 5 metoprolol succinate 25 mg tablet extended release 24 hr 25 mg PO BID Qty: 180 RF: 3 montelukast 10 mg tablet 10 mg PO QPM Qty: 90 RF: 3 metformin 500 mg tablet extended release 24 hr 500 mg PO BID Qty: 180 RF: 3 nitroglycerin 0.4 mg tablet, sublingual 0.4 mg SL DIRECTED PRN (Reason: Chest Pain) Qty: 25 RF: 0 aspirin [Aspirin Low Dose] 81 mg Tablet,Delayed Release (Dr/Ec) 81 mg PO QAM RF: 0 pantoprazole 40 mg tablet,delayed release (DR/EC) 40 mg PO QAM RF: 0 Discharge Orders: Discharge Order (Routine); Ordered 07/25/20 Ordered By: Satinder Arellano/Other Patient Handouts: High Blood Sugar (Hyperglycemia), Hypoglycemia (Low Blood Sugar), Managing Type 2 Diabetes Admission Data Admit Date/Time: 07/19/20 23:46 Attending Provider: Satinder Ge Admit Provider: Armani Penny Primary Care Provider: Nishant Dawn III Other Providers: Armani Penny Coding Level of Care Code D/C Day Management >30 mins Diagnoses Acute respiratory failure with hypoxia J96.01 Pneumonia due to 2019 novel coronavirus U07.1; J12.89 Type 2 diabetes mellitus E11.9 Diabetes mellitus custodial insulin use: without custodial use Diabetes mellitus complication status: without complication Dyslipidemia E78.5 Gastroesophageal reflux disease K21.9 Esophagitis presence: without esophagitis CAD, multiple vessel I25.10 Hypertension I10 Hypertension type: essential hypertension Morbid obesity with BMI of 40.0-44.9, adult E66.01; Z68.41 Pulmonary nodule R91.1
[2020-07-25 13:26] VITALS: PULSE 55; O2SAT 95
== END 2020-07-25 15:44 | disposition home or self-care (01) | DRG 177 ==
LOC: ED 18:37 → EDINP 23:46 → SUATTDRO 23:46 → 2S 07-20 00:25

== ENCOUNTER 2021-01-21 19:20 | Observation (INO) ==
--- NOTE | 2021-01-21 19:33 | Emergency Department Note ---
Impression & Plan COVID-19, Sepsis, Dehydration, URI (upper respiratory infection) ED Provider Note NAME: MAHSA SAHU AGE: 65 SEX: M : 1955 ARRIVES VIA: Ambulance INFORMANT: Patient, ED PROVIDER(S): Dragan Gibbs MD Chief Complaint: Fever, headache, congestion HPI: Patient does present with concern for fever congestion and headache which began about 2 days ago. The patient states that it seemed to improve and actua lly was not that concerning this morning but seem to worsen in the early evening. The patient has been taking some Tylenol at home which mildly improved his symptoms. The patient does complain of some sinus congestion with some drainage although is unsure as to whether or not it is colored to clear. The patient has had some swollen glands in the neck. Patient denies any difficulty with swallowing but has had some increasing dyspnea on exertion but has been checking his pulse oximetry at home which has been 95%. Patient does have a known history of heart disease but does not complain of any chest pain or lower extremity swelling. Patient denies any nausea vomiting. The patient has received 2 doses of Nomi Covid vaccine. Patient does have a frontal headache that is nonradiating. Patient has had decreased p.o. intake the last 2 days. No recent travel or known sick contacts. ROS: See HPI for pertinent positives and negatives. A total of 10 systems were reviewed and otherwise negative. Past medical history: See below Surgical history: See below Social history: See below Physical Exam: GENERAL: Mildly ill in appearance, no apparent distress. EYE EXAM: Normal conjunctiva. PERRL, no anisocoria and EOM's grossly intact w/o pain. OROPHARYNX: Dry mucus membranes. Grossly normal dentition. NECK: Supple, no nuchal rigidity, no adenopathy, non-tender. No signs of meningismus. [FROM of the neck with good chin to chest and neck extension. No stridor.] LUNGS: Clear to auscultation. Normal chest wall mechanics. HEART: Tachycardic and regular, no MRG. ABDOMEN: Abdomen soft, non-tender, normo-active bowel sounds, no masses, no rebound or guarding. BACK: No CVA TTP. SKIN: No rashes and no bruising. UPPER EXTREMITIES: Upper extremities are grossly normal. LOWER EXTREMITIES: Grossly normal, no edema. NEURO EXAM: A&O x3, cranial nerves II-XII grossly intact, normal speech, moves all 4 extremities on command w/o issue. Differential diagnoses: Sepsis, UTI, pneumonia, metabolic, electrolyte abnormalities, cardiac sources, intracerebral event, toxicologic, neurologic, as well as other pathologies. Course: Patient was seen and evaluated the bedside. Full history physical exam was performed. EKG interpreted by me Sinus tachycardia, rate of 105, normal intervals, normal axis, Q-wave inferiorly. Imaging Studies: See below Cardiac monitoring: An order was placed for continuous cardiac monitoring. The monitor shows a rate of 108 with sinus tachycardia rhythm. MDM: Patient was seen due to concern for upper respiratory type symptoms headache and fever. Patient did have bladder completed. The patient did show a white count of 14 his antibiotics were ordered. The patient already did have blood cultures lactate and IV fluids given. The patient has normal kidney function. Glucose is slightly elevated but normal bicarb and anion gap. The patient does have mild elevation in bilirubin but the patient denies any abdominal pain. Troponin detectable but not elevated. Procalcitonin is elevated. Urinalysis does show leuks and whites but does have numerous epithelial cells. The patient denied any dysuria or increasing frequency. Covid positive. Patient's chest x-ray is otherwise clear. Given the patient's sepsis picture with positive pro-Maykel even in light of positive Covid believe the patient would benefit from continued treatment. I did speak with the on-call hospitalist Dr. Li and the patient was admitted to the medicine service. Past Med/Surg History Medical History (Updated 01/21/21 @ 23:46 by Dragan Gibbs MD) CAD, multiple vessel Diabetes mellitus type 2, uncontrolled Gastroesophageal reflux disease Hypertension Lymphadenopathy, cervical Sinusitis STEMI (ST elevation myocardial infarction) Surgical History H/O heart artery stent Family History Mother Coronary heart disease Hypertension Sister Breast cancer Grandfather Myocardial infarction Uncle Myocardial infarction Father Hypertension Denies family history of Ovarian cancer Prostate cancer Colorectal cancer Social History Smoking Status: Former smoker Tobacco Type: Cigarettes Age Started Using Tobacco: 19; Age Quit Using Tobacco: 54; packs per day: 1.5; Second Hand Exposure: Yes; Hx Alcohol Use: No Hx Substance Use: No Preferred Language: Vietnamese Communication Ability: Effective Visual Impairment: No Limitations Hearing Ability: Normal Coil Winder Hand Required: No Beliefs That Will Affect Care: None marital status: Current Living Situation: Alone current occupational status: retired current occupation: retired from career with mortgage filled service rep Feels Safe at Home: Yes Childhood Exposure to Second-Hand Smoke: Yes Diet Comment: no sugar caffeine: Yes (decaf coffee) during the past year weight has: remained stable Dental Care, Regularly: No Physical Activity Frequency: Does not Exercise Seatbelt Use: always Sunscreen Use: No Allergies Allergies Allergy/AdvReac Type Severity Reaction Status Date / Time No Known Allergies Allergy Verified 01/21/21 21:41 Home Meds Home Medications Medication Instructions Recorded Confirmed aspirin [Aspirin Low Dose] 81 mg PO QAM 07/19/20 01/21/21 pantoprazole 40 mg tablet,delayed 40 mg PO QAM tab 08/26/20 01/21/21 release Previous Rx's Medication Instructions Recorded metoprolol succinate 25 mg 25 mg PO BID #180 tab 02/05/20 tablet,extended release 24 hr montelukast 10 mg tablet 10 mg PO QPM #90 tab 06/24/20 metformin 500 mg tablet,extended 500 mg PO BID #180 tab 07/06/20 release 24 hr lisinopril 20 mg tablet 20 mg PO QAM #90 tab 07/27/20 lancets 33 gauge #100 ea 12/14/20 methocarbamol 500 mg tablet 500 mg PO TID PRN #30 tab 12/30/20 nitroglycerin 0.4 mg sublingual 0.4 mg SL DIRECTED PRN #25 tab 12/31/20 tablet clopidogrel 75 mg tablet 75 mg PO QAM #90 tab 01/18/21 simvastatin 40 mg tablet 40 mg PO HS #90 tab 01/20/21 Results & Data (ED) Vital Signs Vital Signs - 24 hr 01/21/21 19:25 01/21/21 19:42 01/21/21 19:47 Temperature 39.2 C H Temperature Source Temporal Artery Scan Pulse Rate 108 H Pulse Rate [Apical] 99 H Pulse Rhythm [Apical] Regular Respiratory Rate 20 20 Respiratory Effort / Characteristics Non-Labored Spontaneous Non-Labored Respiratory Depth Normal Normal Blood Pressure 144/75 H Blood Pressure [Right Arm] 173/69 H Blood Pressure Mean 98 Blood Pressure Mean [Right Arm] 103 Blood Pressure Position Sitting Pulse Oximetry 93 92 94 Oxygen Delivery Method Room Air Room Air Room Air Sepsis Recent Fever Within 48 Hours Yes Sepsis New/Unexplained Change in Mental Status No Sepsis Action Taken by Nursing Physician Notified 01/21/21 20:27 01/21/21 20:30 01/21/21 20:45 Temperature 37.6 C H Temperature Source Oral Pulse Rate Pulse Rate [Apical] 95 H 99 H 99 H Pulse Rhythm [Apical] Regular Regular Respiratory Rate 20 20 20 Respiratory Effort / Characteristics Non-Labored Non-Labored Non-Labored Respiratory Depth Normal Normal Blood Pressure Blood Pressure [Right Arm] 148/53 H 148/53 H 129/87 Blood Pressure Mean Blood Pressure Mean [Right Arm] 84 84 101 Blood Pressure Position Pulse Oximetry 92 94 94 Oxygen Delivery Method Room Air Room Air Room Air Sepsis Recent Fever Within 48 Hours Sepsis New/Unexplained Change in Mental Status Sepsis Action Taken by Nursing 01/21/21 21:00 01/21/21 22:00 01/21/21 22:30 Temperature Temperature Source Pulse Rate Pulse Rate [Apical] 91 H 98 H Pulse Rhythm [Apical] Regular Regular Respiratory Rate 20 20 20 Respiratory Effort / Characteristics Non-Labored Non-Labored SOB on Exertion Respiratory Depth Normal Normal Blood Pressure Blood Pressure [Right Arm] 131/53 L 167/70 H Blood Pressure Mean Blood Pressure Mean [Right Arm] 79 102 Blood Pressure Position Pulse Oximetry 94 93 95 Oxygen Delivery Method Room Air Room Air Room Air Sepsis Recent Fever Within 48 Hours Sepsis New/Unexplained Change in Mental Status Sepsis Action Taken by Nursing 01/21/21 22:45 01/21/21 23:00 Temperature Temperature Source Pulse Rate Pulse Rate [Apical] 86 84 Pulse Rhythm [Apical] Regular Regular Respiratory Rate 20 20 Respiratory Effort / Characteristics Non-Labored Non-Labored Respiratory Depth Normal Normal Blood Pressure Blood Pressure [Right Arm] 167/70 H 123/54 L Blood Pressure Mean Blood Pressure Mean [Right Arm] 102 77 Blood Pressure Position Pulse Oximetry 93 94 Oxygen Delivery Method Room Air Room Air Sepsis Recent Fever Within 48 Hours Sepsis New/Unexplained Change in Mental Status Sepsis Action Taken by Half-Way Medications Current Medication List: was personally reviewed by me Laboratory Data Attestation: I reviewed the patient's lab results. Result diagrams: 01/21/21 20:03 01/21/21 20:03 Lab Results 01/21/21 01/21/21 01/21/21 Range/Units 20:03 20:03 20:03 WBC 14.48 H (4.8-10.8) K/uL RBC 4.73 (4.7-6.1) M/uL Hgb 14.0 (14.0-18.0) g/dL Hct 41.1 L (42-52) % MCV 86.9 (80-100) fL MCH 29.6 (25-34) pg MCHC 34.1 (32-36) g/dL RDW Std Deviation 49.5 H (36.4-46.3) fL RDW Coeff of Nanette 15.3 H (11.5-14.5) % Plt Count 139 (130-400) K/uL MPV 10.5 H (7.4-10.4) fL Immature Gran % (Auto) 0.2 % Neut % (Auto) 89.8 % Lymph % (Auto) 5.4 % [place] % (Auto) 4.4 % Eos % (Auto) 0.1 % Baso % (Auto) 0.1 % Neut # (Auto) 13.00 H (1.4-6.5) K/uL Lymph # (Auto) 0.78 L (1.2-3.4) K/uL [place] # (Auto) 0.64 H (0.11-0.59) K/uL Eos # (Auto) 0.01 (0-0.5) K/uL Baso # (Auto) 0.02 (0-0.2) K/uL Immature Gran # (Auto) 0.03 H (0.00-0.02) K/uL PT 11.1 (9.0-12.0) Seconds INR 1.1 (0.9-1.1) APTT 28.6 (21.0-31.0) Seconds PTT Ratio 1.1 Sodium 135 L (136-145) mmol/L Potassium 4.2 (3.5-5.1) mmol/L Chloride 103 (98-107) mmol/L Carbon Dioxide 26 (21-32) mmol/L Anion Gap 5.0 (3-11) BUN 15 (7-18) mg/dl Creatinine 1.30 (0.6-1.4) mg/dl Est Cr Clr Drug Dosing 59.1 ml/min Est GFR ( Amer) 65.9 ml/min Est GFR (Non-Af Amer) 56.9 ml/min BUN/Creatinine Ratio 11.2 (10-20) Glucose 172 H (70-99) mg/dl Lactate (0.4-2.0) mmol/L Calcium 8.7 (8.5-10.1) mg/dl Magnesium 1.8 (1.8-2.4) mg/dl Total Bilirubin 1.7 H (0.2-1) mg/dl AST 13 L (15-37) U/L ALT 29 (12-78) U/L Alkaline Phosphatase 90 (45-117) U/L Troponin I 0.025 (0-0.045) ng/ml Total Protein 7.5 (6.4-8.2) gm/dl Albumin 3.7 (3.4-5.0) gm/dl Globulin 3.8 (2.5-4.0) gm/dl Albumin/Globulin Ratio 1.0 (0.9-2) Procalcitonin (0-0.5) ng/ml Urine Color Urine Appearance (Clear) Urine pH (4.5-7.5) Ur Specific [place] (1.000-1.030) Urine Protein (Negative) Urine Glucose (UA) (Negative) Urine Ketones (Negative) Urine Blood (Negative) Urine Nitrite (Negative) Urine Bilirubin (Negative) Urine Urobilinogen (Negative) Ur Leukocyte Esterase (Negative) Urine WBC (Auto) (0-5) /hpf Urine RBC (Auto) (0-4) /hpf U Hyaline Cast (Auto) (0-5) /lpf U Epithel Cells (Auto) (0-5) /lpf Urine Bacteria (Auto) (Negative) Ur Renal Epithelial Cell COVID-19 Eval Order SARS-CoV-2 (PCR) (Negative) 01/21/21 01/21/21 01/21/21 Range/Units 20:03 20:03 20:15 WBC (4.8-10.8) K/uL RBC (4.7-6.1) M/uL Hgb (14.0-18.0) g/dL Hct (42-52) % MCV (80-100) fL MCH (25-34) pg MCHC (32-36) g/dL RDW Std Deviation (36.4-46.3) fL RDW Coeff of Nanette (11.5-14.5) % Plt Count (130-400) K/uL MPV (7.4-10.4) fL Immature Gran % (Auto) % Neut % (Auto) % Lymph % (Auto) % [place] % (Auto) % Eos % (Auto) % Baso % (Auto) % Neut # (Auto) (1.4-6.5) K/uL Lymph # (Auto) (1.2-3.4) K/uL [place] # (Auto) (0.11-0.59) K/uL Eos # (Auto) (0-0.5) K/uL Baso # (Auto) (0-0.2) K/uL Immature Gran # (Auto) (0.00-0.02) K/uL PT (9.0-12.0) Seconds INR (0.9-1.1) APTT (21.0-31.0) Seconds PTT Ratio Sodium (136-145) mmol/L Potassium (3.5-5.1) mmol/L Chloride (98-107) mmol/L Carbon Dioxide (21-32) mmol/L Anion Gap (3-11) BUN (7-18) mg/dl Creatinine (0.6-1.4) mg/dl Est Cr Clr Drug Dosing ml/min Est GFR ( Amer) ml/min Est GFR (Non-Af Amer) ml/min BUN/Creatinine Ratio (10-20) Glucose (70-99) mg/dl Lactate 1.3 (0.4-2.0) mmol/L Calcium (8.5-10.1) mg/dl Magnesium (1.8-2.4) mg/dl Total Bilirubin (0.2-1) mg/dl AST (15-37) U/L ALT (12-78) U/L Alkaline Phosphatase (45-117) U/L Troponin I (0-0.045) ng/ml Total Protein (6.4-8.2) gm/dl Albumin (3.4-5.0) gm/dl Globulin (2.5-4.0) gm/dl Albumin/Globulin Ratio (0.9-2) Procalcitonin 8.27 H (0-0.5) ng/ml Urine Color Dark Yellow Urine Appearance Clear (Clear) Urine pH >= 9.0 H (4.5-7.5) Ur Specific [place] 1.024 (1.000-1.030) Urine Protein 2+ H (Negative) Urine Glucose (UA) Negative (Negative) Urine Ketones 1+ H (Negative) Urine Blood Negative (Negative) Urine Nitrite Negative (Negative) Urine Bilirubin Negative (Negative) Urine Urobilinogen Negative (Negative) Ur Leukocyte Esterase Trace H (Negative) Urine WBC (Auto) 10-30 H (0-5) /hpf Urine RBC (Auto) 0-4 (0-4) /hpf U Hyaline Cast (Auto) 1-5 (0-5) /lpf U Epithel Cells (Auto) >30 H (0-5) /lpf Urine Bacteria (Auto) Negative (Negative) Ur Renal Epithelial Cell Not Reportable COVID-19 Eval Order SARS-CoV-2 (PCR) (Negative) 01/21/21 01/21/21 Range/Units 20:15 20:15 WBC (4.8-10.8) K/uL RBC (4.7-6.1) M/uL Hgb (14.0-18.0) g/dL Hct (42-52) % MCV (80-100) fL MCH (25-34) pg MCHC (32-36) g/dL RDW Std Deviation (36.4-46.3) fL RDW Coeff of Nanette (11.5-14.5) % Plt Count (130-400) K/uL MPV (7.4-10.4) fL Immature Gran % (Auto) % Neut % (Auto) % Lymph % (Auto) % [place] % (Auto) % Eos % (Auto) % Baso % (Auto) % Neut # (Auto) (1.4-6.5) K/uL Lymph # (Auto) (1.2-3.4) K/uL [place] # (Auto) (0.11-0.59) K/uL Eos # (Auto) (0-0.5) K/uL Baso # (Auto) (0-0.2) K/uL Immature Gran # (Auto) (0.00-0.02) K/uL PT (9.0-12.0) Seconds INR (0.9-1.1) APTT (21.0-31.0) Seconds PTT Ratio Sodium (136-145) mmol/L Potassium (3.5-5.1) mmol/L Chloride (98-107) mmol/L Carbon Dioxide (21-32) mmol/L Anion Gap (3-11) BUN (7-18) mg/dl Creatinine (0.6-1.4) mg/dl Est Cr Clr Drug Dosing ml/min Est GFR ( Amer) ml/min Est GFR (Non-Af Amer) ml/min BUN/Creatinine Ratio (10-20) Glucose (70-99) mg/dl Lactate (0.4-2.0) mmol/L Calcium (8.5-10.1) mg/dl Magnesium (1.8-2.4) mg/dl Total Bilirubin (0.2-1) mg/dl AST (15-37) U/L ALT (12-78) U/L Alkaline Phosphatase (45-117) U/L Troponin I (0-0.045) ng/ml Total Protein (6.4-8.2) gm/dl Albumin (3.4-5.0) gm/dl Globulin (2.5-4.0) gm/dl Albumin/Globulin Ratio (0.9-2) Procalcitonin (0-0.5) ng/ml Urine Color Urine Appearance (Clear) Urine pH (4.5-7.5) Ur Specific [place] (1.000-1.030) Urine Protein (Negative) Urine Glucose (UA) (Negative) Urine Ketones (Negative) Urine Blood (Negative) Urine Nitrite (Negative) Urine Bilirubin (Negative) Urine Urobilinogen (Negative) Ur Leukocyte Esterase (Negative) Urine WBC (Auto) (0-5) /hpf Urine RBC (Auto) (0-4) /hpf U Hyaline Cast (Auto) (0-5) /lpf U Epithel Cells (Auto) (0-5) /lpf Urine Bacteria (Auto) (Negative) Ur Renal Epithelial Cell COVID-19 Eval Order Covid19 at [facility] SARS-CoV-2 (PCR) POSITIVE A* (Negative) Administered Medications Discontinued Medications Sodium Chloride (Nss 1000ml) 1,000 mls @ 999 mls/hr IV .[id number] AMANDA Stop: 01/21/21 20:43 Last Infusion: 01/21/21 21:42 Dose: 0 mls/hr Documented by: [id number] Admin: 01/21/21 20:12 Dose: 999 mls/hr Documented by: [id number] Sodium Chloride (Nss 1000ml) 1,000 mls @ 999 mls/hr IV .Q1H1M AMANDA Stop: 01/21/21 21:43 Last Infusion: 01/21/21 22:19 Dose: 0 mls/hr Documented by: [id number] Admin: 01/21/21 20:12 Dose: 999 mls/hr Documented by: [id number] Acetaminophen (Ofirmev) 1,000 mg in 100 mls @ 400 mls/hr IV NOW STA Stop: 01/21/21 19:56 Last Infusion: 01/21/21 20:58 Dose: 0 mls/hr Documented by: [id number] Admin: 01/21/21 20:12 Dose: 400 mls/hr Documented by: [id number] Piperacillin Sod/Tazobactam Sod (Zosyn) 4.5 gm in 120 mls @ 240 mls/hr IV NOW ONE Stop: 01/21/21 21:10 Last Infusion: 01/21/21 22:19 Dose: 0 mls/hr Documented by: [id number] Admin: 01/21/21 21:39 Dose: 240 mls/hr Documented by: [id number] Ondansetron HCl (Ondansetron Inj 2 Mg/Ml 2 Ml Vial) 4 mg IV NOW STA Stop: 01/21/21 19:43 Last Admin: 01/21/21 20:12 Dose: 4 mg Documented by: [id number] Imaging Data Radiologist's Impression: Chest X-Ray 01/21/21 19:42 XR chest 1V portable CLINICAL HISTORY: SEPSIS COMPARISON STUDY: Chest radiograph July 21, 2020. FINDINGS: Lung volumes are normal. Lungs are clear. There is no pneumothorax or pleural effusion. Cardiomegaly is unchanged. Mediastinal contours are normal. There is no evidence for pulmonary edema. IMPRESSION: No acute cardiopulmonary findings. Cardiomegaly. ACT 112: Negative or not required by law. Electronically signed by: Reuben James M.D. 01/21/2021 8:33 PM Discharge Plan Visit Data Chief Complaint: Illness Stated Complaint: ILLNESS ED Provider: Dragan Gibbs Discharge Problem: COVID-19, Sepsis, Dehydration, URI (upper respiratory infection) Forms Stand Alone Forms: [facility] [employer] Prescriptions Prescriptions: No Action metoprolol succinate 25 mg tablet extended release 24 hr 25 mg PO BID Qty: 180 RF: 3 montelukast 10 mg tablet 10 mg PO QPM Qty: 90 RF: 3 metformin 500 mg tablet extended release 24 hr 500 mg PO BID Qty: 180 RF: 3 lisinopril 20 mg tablet 20 mg PO QAM Qty: 90 RF: 3 (DME) lancets [OneTouch Delica Lancets] 33 gauge misc See Dose Instructions .ROUTE .MEDSUPPLY Qty: 100 RF: 3 nitroglycerin 0.4 mg tablet, sublingual 0.4 mg SL DIRECTED PRN (Reason: Chest Pain) Qty: 25 RF: 3 clopidogrel 75 mg tablet 75 mg PO QAM Qty: 90 RF: 3 simvastatin 40 mg tablet 40 mg PO HS Qty: 90 RF: 3 methocarbamol 500 mg tablet 500 mg PO TID PRN (Reason: back pain/spasm) Qty: 30 RF: 1 aspirin [Aspirin Low Dose] 81 mg Tablet,Delayed Release (Dr/Ec) 81 mg PO QAM RF: 0 pantoprazole 40 mg tablet,delayed release (DR/EC) 40 mg PO QAM RF: 0 Discharge Problem: Sepsis Qualifiers: Sepsis type: sepsis due to unspecified organism Sepsis acute organ dysfunction status: without acute organ dysfunction Qualified Code(s): A41.9 - Sepsis, unsp ecified organism URI (upper respiratory infection) Qualifiers: URI type: unspecified URI Qualified Code(s): J06.9 - Acute upper respiratory infection, unspecified
[2021-01-21] MEDS ORDERED: ACETAMINOPHEN 1,000 MG/100 ML VIAL IV STA (19:42)
[2021-01-21] MEDS ORDERED: ONDANSETRON INJ 2 MG/ML 2 ML VIAL IV STA (19:42)
[2021-01-21] MEDS ORDERED: SODIUM CHLORIDE 0.9% 1000ML 1,000 ML IV SCH ×2 (19:45→20:43)
[2021-01-21 20:19] LABS: Basophils # (auto) 0.02 K/uL (0-0.2); Basophils % (auto) 0.1 %; Eosinophils # (auto) 0.01 K/uL (0-0.5); Eosinophils % (auto) 0.1 %; Hematocrit (blood only) 41.1 % (42-52); Immature Granulocytes # (auto) 0.03 K/uL (0.00-0.02); Immature Granulocytes % (auto) 0.2 %; Lymphocytes # (auto) 0.78 K/uL (1.2-3.4); Lymphocytes % (auto) 5.4 %; Mean Corpuscular Hemoglobin 29.6 pg (25-34); Mean Corpuscular Hgb Conc 34.1 g/dL (32-36); Mean Corpuscular Volume 86.9 fL (80-100); Mean Platelet Volume 10.5 fL (7.4-10.4); Monocytes # (auto) 0.64 K/uL (0.11-0.59); Monocytes % (auto) 4.4 %; Neutrophils % (auto) 89.8 %; Platelet Count 139 K/uL (130-400); RDW Coefficient of Variation 15.3 % (11.5-14.5); RDW Standard Deviation 49.5 fL (36.4-46.3); Red Blood Count 4.73 M/uL (4.7-6.1); White Blood Count 14.48 K/uL (4.8-10.8)
[2021-01-21 20:32] LABS: INR 1.1 (0.9-1.1); Partial Thromboplastin Ratio 1.1; Partial Thromboplastin Time 28.6 Seconds (21.0-31.0); Prothrombin Time 11.1 Seconds (9.0-12.0)
--- NOTE | 2021-01-21 20:34 | XRay Report ---
XR chest 1V portable CLINICAL HISTORY: SEPSIS COMPARISON STUDY: Chest radiograph July 21, 2020. FINDINGS: Lung volumes are normal. Lungs are clear. There is no pneumothorax or pleural effusion. Car diomegaly is unchanged. Mediastinal contours are normal. There is no evidence for pulmonary edema. IMPRESSION: No acute cardiopulmonary findings. Cardiomegaly. ACT 112: Negative or not required by law. Electronically signed by: Reuben James M.D. 01/21/2021 8:33 PM
[2021-01-21 20:36] LABS: Albumin Level 3.7 gm/dl (3.4-5.0); BUN Creatinine Ratio 11.2 (10-20); Calcium 8.7 mg/dl (8.5-10.1); Creatinine Clr Calc Pharmacy 59.1 ml/min; Est GFR (African American) 65.9 ml/min; Est GFR (Non-African American) 56.9 ml/min; Magnesium 1.8 mg/dl (1.8-2.4); Potassium 4.2 mmol/L (3.5-5.1)
[2021-01-21 20:39] LABS: Appearance Urine Clear (Clear); Bacteria Urine Automated Negative (Negative); Bilirubin Urine Negative (Negative); Blood Urine Negative (Negative); Color Urine Dark Yellow; Epithelial Cell Urine Auto >30 /lpf (0-5); Glucose Urine UA Negative (Negative); Ketones Urine 1+ (Negative); Leukocyte Esterase Urine Trace (Negative); Nitrite Urine Negative (Negative); RBC Urine Automated 0-4 /hpf (0-4); Specific Gravity Urine 1.024 (1.000-1.030); Urobilinogen Urine Negative (Negative); pH Urine >= 9.0 (4.5-7.5)
[2021-01-21 20:41] LABS: Bilirubin,Total 1.7 mg/dl (0.2-1); Globulin 3.8 gm/dl (2.5-4.0); Total Protein 7.5 gm/dl (6.4-8.2); Troponin I 0.025 ng/ml (0-0.045)
[2021-01-21] MEDS ORDERED: PIPERACILL/TAZOBAC CONSULT ACTIVE PRN (20:41)
[2021-01-21] MEDS ORDERED: PIPERACILLIN/TAZOBACTAM 4.5 GM/120 ML BAG IV ONE (20:41)
[2021-01-21 20:42] LABS: Protein Urine 2+ (Negative)
[2021-01-22 00:48] LABS: Lyme Ab IgG w/WB Rflx Negative (Negative)
[2021-01-22 00:50] LABS: Lyme Ab IgM w/WB Rflx Negative (Negative)
[2021-01-22] MEDS ORDERED: ONDANSETRON INJ 2 MG/ML 2 ML VIAL IV PRN (01:52)
[2021-01-22] MEDS ORDERED: DEXTROSE 50% 50 ML SYRINGE IV PRN (01:52)
[2021-01-22] MEDS ORDERED: METHOCARBAMOL 500 MG TABLET PO PRN (01:52)
[2021-01-22] MEDS ORDERED: GLUCAGON FOR INJ 1 MG VIAL SQ PRN (01:52)
[2021-01-22] MEDS ORDERED: NITROGLYCERIN SL 0.4 MG/TAB TAB SL PRN ×2 (01:52)
[2021-01-22] MEDS ORDERED: GLUCOSE 40% GEL 15 GM TUBE PO PRN (01:52)
[2021-01-22] MEDS ORDERED: CARBOHYDRATES FOR HYPOGLYCEMIA PO PRN (01:52)
[2021-01-22] MEDS ORDERED: ACETAMINOPHEN 325 MG TAB PO PRN (01:52)
[2021-01-22] MEDS ORDERED: GLUCOSE 10 TABS/TUBE PO PRN (01:52)
[2021-01-22] MEDS: METOPROLOL SUCC 25MG EXT REL TAB PO SCH ×3 (03:06→20:54)
[2021-01-22] MEDS: ENOXAPARIN INJ 60 MG/0.6 ML SYR SQ SCH (03:06)
--- NOTE | 2021-01-22 04:20 | History & Physical Report ---
Date of Service January 22, 2021 Assessment & Plan (1) URI (upper respiratory infection): Upper respiratory infection/sinusitis- Ceftriaxone 2 g IV daily Azithromycin 500 mg IV daily Guaifenesin extended release 600 mg p.o. every 12 hours Methylprednisolone 20 mg IV every 8 hours Patient was admitted from 07/19/2020-07/25/2020 for COVID-19 pneumonia nausea acute respiratory failure with hypoxia. Patient did test positive for COVID-19 in the ED this evening, but unlikely that this is a cause of his symptoms. Lyme IgG and IgM were negative in the ED, anaplasmosis smear was negative, with anaplasmosis antibody is pending Present on Admission?: Yes (2) Dyslipidemia: Continue simvastatin 40 mg at bedtime Present on Admission?: Yes (3) Type 2 diabetes mellitus: Hold Metformin Placed on Accu-Cheks before meals and at bedtime with NovoLog coverage per scale Check hemoglobin A1c Present on Admission?: Yes (4) Gastroesophageal reflux disease: Continue pantoprazole 40 mg every morning Present on Admission?: Yes (5) CAD, multiple vessel: Multivessel CAD/hypertension- The patient will be admitted to telemetry for serial cardiac enzymes, serial EKG's, cardiac rhythm monitoring and a 2-D echocardiogram with Dopplers. Continue aspirin 81 mg in the morning, clopidogrel 75 mg every morning, lisinopril 20 mg every morning, metoprolol succinate 25 mg p.o. twice daily and nitroglycerin sublingual as as needed Present on Admission?: Yes (6) Hypertension: See above Present on Admission?: Yes Admission and Anticipated Discharge Date Admission Date: January 22, 2021 History of Present Illness Chief Complaint: The patient presents to the emergency department with complaint of 2 days of sinus and chest congestion, headache and fever that began to improve this morning, but then began to worsen again earlier this evening. Primary Care Provider: Nishant Dawn MD The patient is a 65-year-old male with a past medical history including lumbar disc disease with right-sided sciatica, transaminitis, morbid obesity, pneumonia due to COVID-19 virus with admission from 07/19/20-07/25/20, pulmonary nodule, dyslipidemia, stented coronary artery, diabetes mellitus type 2, cervical lymphadenopathy, GERD, multivessel CAD and hypertension. Patient presents with 2 days of symptoms as noted above. Allergies Allergy/AdvReac Type Severity Reaction Status Date / Time No Known Allergies Allergy Verified 01/21/21 21:41 Home Medications Medication Instructions Recorded Confirmed Type metoprolol succinate 25 mg 25 mg PO BID #180 tab 02/05/20 01/21/21 Rx tablet,extended release 24 hr montelukast 10 mg tablet 10 mg PO QPM #90 tab 06/24/20 01/21/21 Rx metformin 500 mg tablet,extended 500 mg PO BID #180 tab 07/06/20 01/21/21 Rx release 24 hr aspirin [Aspirin Low Dose] 81 mg PO QAM 07/19/20 01/21/21 History lisinopril 20 mg tablet 20 mg PO QAM #90 tab 07/27/20 01/21/21 Rx pantoprazole 40 mg tablet,delayed 40 mg PO QAM tab 08/26/20 01/21/21 History release lancets 33 gauge #100 ea 12/14/20 Rx methocarbamol 500 mg tablet 500 mg PO TID PRN #30 tab 12/30/20 01/21/21 Rx nitroglycerin 0.4 mg sublingual 0.4 mg SL DIRECTED PRN #25 tab 12/31/20 01/21/21 Rx tablet clopidogrel 75 mg tablet 75 mg PO QAM #90 tab 01/18/21 01/21/21 Rx simvastatin 40 mg tablet 40 mg PO HS #90 tab 01/20/21 01/21/21 Rx Past Med/Surg History Medical History (Updated 01/21/21 @ 23:46 by Dragan Gibbs MD) CAD, multiple vessel Diabetes mellitus type 2, uncontrolled Gastroesophageal reflux disease Hypertension Lymphadenopathy, cervical Sinusitis STEMI (ST elevation myocardial infarction) Surgical History H/O heart artery stent Family History Mother Coronary heart disease Hypertension Sister Breast cancer Grandfather Myocardial infarction Uncle Myocardial infarction Father Hypertension Denies family history of Ovarian cancer Prostate cancer Colorectal cancer Social History Smoking Status: Never smoker Tobacco Type: Cigarettes Age Started Using Tobacco: 19; Age Quit Using Tobacco: 54; packs per day: 1.5; Second Hand Exposure: Yes; Do You Dip or Chew Tobacco: No; Hx Alcohol Use: No Hx Substance Use: No Preferred Language: Congolese Communication Ability: Effective Visual Impairment: No Limitations Hearing Ability: Normal Program Medical Director Required: No Beliefs That Will Affect Care: None marital status: Current Living Situation: Alone current occupational status: retired current occupation: retired from career with mortgage filled service rep Other Information That Helps Us Care for You: No Feels Safe at Home: Yes Safety Concerns: Feels Safe At This Time Childhood Exposure to Second-Hand Smoke: Yes Diet Comment: no sugar caffeine: Yes (decaf coffee) during the past year weight has: remained stable Dental Care, Regularly: No Physical Activity Frequency: Does not Exercise Seatbelt Use: always Sunscreen Use: No Assistive Devices: None Review of Systems Review of Systems: The patient denies chest pain, palpitations, cough, lower extremity swelling, sore throat, fevers, chills, sweats, nausea, vomiting, diarrhea , constipation, abdominal pain, pelvic pain, blood in urine or stool, dysuria, urinary frequency or urgency, lightheadedness, dizziness, memory loss, loss of consciousness, rash, abnormal bruising or bleeding, imbalance, focal or generalized weakness, numbness or tingling in arms or legs, neck pain, or night sweats. The review of systems is otherwise negative other than for that already noted above, and at least 10 systems have been reviewed. Physical Exam Physical Exam: The patient is awake, alert and oriented 3, well developed and well nourished, normocephalic and atraumatic, lying in bed and in no acute distress. HEENT--PERRL, EOMI, mucous membranes and oropharynx normal. Neck--supple. No JVD. No bruits. Thyroid normal, trachea midline, no adenopathy. Heart--normal S1 and S2. No murmurs, rubs or gallops. Lungs--clear bilaterally, no respiratory distress, no accessory muscle use. Abdomen--normal bowel sounds and soft. Nontender. Nondistended. Morbidly obese Extremities--no cyanosis or clubbing. No edema. Dermatologic--normal skin turgor, normal color, no abnormal lymph nodes, no rash. Neurologic--cranial nerves II through XII grossly intact. Rheumatologic--normal range of motion. Psychiatric--normal affect. Results & Data Results & Data ([facility]) Vital Signs (Past 12 Hours) Vital Signs Temp Pulse Pulse Resp BP BP Pulse Ox 01/22/21 01:46 101.8 F H 105 H 22 173/95 H 95 01/22/21 01:17 167/99 H 01/22/21 01:00 18 149/48 H 99 01/22/21 00:30 82 17 128/62 96 01/22/21 00:00 79 18 145/60 H 94 01/21/21 23:30 93 H 18 140/68 94 01/21/21 23:00 82 84 15 123/54 L 123/54 L 92 01/21/21 22:45 86 20 167/70 H 93 01/21/21 22:30 98 H 20 167/70 H 95 01/21/21 22:00 91 H 20 131/53 L 93 01/21/21 21:00 20 94 01/21/21 20:45 99 H 20 129/87 94 01/21/21 20:30 99.7 F H 99 H 20 148/53 H 94 01/21/21 20:27 95 H 20 148/53 H 92 01/21/21 19:47 94 01/21/21 19:42 99 H 20 173/69 H 92 01/21/21 19:25 102.6 F H 108 H 20 144/75 H 93 Laboratory Results Laboratory Results WBC 14.48 K/uL (4.8-10.8) H 01/21/21 20:03 RBC 4.73 M/uL (4.7-6.1) 01/21/21 20:03 Hgb 14.0 g/dL (14.0-18.0) 01/21/21 20:03 Hct 41.1 % (42-52) L 01/21/21 20:03 MCV 86.9 fL (80-100) 01/21/21 20:03 MCH 29.6 pg (25-34) 01/21/21 20:03 MCHC 34.1 g/dL (32-36) 01/21/21 20:03 RDW Std Deviation 49.5 fL (36.4-46.3) H 01/21/21 20:03 RDW Coeff of Nanette 15.3 % (11.5-14.5) H 01/21/21 20:03 Plt Count 139 K/uL (130-400) 01/21/21 20:03 MPV 10.5 fL (7.4-10.4) H 01/21/21 20:03 Immature Gran % (Auto) 0.2 % 01/21/21 20:03 Neut % (Auto) 89.8 % 01/21/21 20:03 Lymph % (Auto) 5.4 % 01/21/21 20:03 [place] % (Auto) 4.4 % 01/21/21 20:03 Eos % (Auto) 0.1 % 01/21/21 20:03 Baso % (Auto) 0.1 % 01/21/21 20:03 Neut # (Auto) 13.00 K/uL (1.4-6.5) H 01/21/21 20:03 Lymph # (Auto) 0.78 K/uL (1.2-3.4) L 01/21/21 20:03 [place] # (Auto) 0.64 K/uL (0.11-0.59) H 01/21/21 20:03 Eos # (Auto) 0.01 K/uL (0-0.5) 01/21/21 20:03 Baso # (Auto) 0.02 K/uL (0-0.2) 01/21/21 20:03 Immature Gran # (Auto) 0.03 K/uL (0.00-0.02) H 01/21/21 20:03 PT 11.1 Seconds (9.0-12.0) 01/21/21 20:03 INR 1.1 (0.9-1.1) 01/21/21 20:03 APTT 28.6 Seconds (21.0-31.0) 01/21/21 20:03 PTT Ratio 1.1 01/21/21 20:03 Sodium 135 mmol/L (136-145) L 01/21/21 20:03 Potassium 4.2 mmol/L (3.5-5.1) 01/21/21 20:03 Chloride 103 mmol/L (98-107) 01/21/21 20:03 Carbon Dioxide 26 mmol/L (21-32) 01/21/21 20:03 Anion Gap 5.0 (3-11) 01/21/21 20:03 BUN 15 mg/dl (7-18) 01/21/21 20:03 Creatinine 1.30 mg/dl (0.6-1.4) 01/21/21 20:03 Est Cr Clr Drug Dosing 59.1 ml/min 01/21/21 20:03 Est GFR ( Amer) 65.9 ml/min 01/21/21 20:03 Est GFR (Non-Af Amer) 56.9 ml/min 01/21/21 20:03 BUN/Creatinine Ratio 11.2 (10-20) 01/21/21 20:03 Glucose 172 mg/dl (70-99) H 01/21/21 20:03 POC Glucose 162 mg/dl (70-99) H 01/22/21 02:58 Lactate 1.3 mmol/L (0.4-2.0) 01/21/21 20: Calcium 8.7 mg/dl (8.5-10.1) 01/21/21 20:03 Magnesium 1.8 mg/dl (1.8-2.4) 01/21/21 20:03 Total Bilirubin 1.7 mg/dl (0.2-1) H 01/21/21 20:03 AST 13 U/L (15-37) L 01/21/21 20:03 ALT 29 U/L (12-78) 01/21/21 20:03 Alkaline Phosphatase 90 U/L (45-117) 01/21/21 20:03 Troponin I 0.025 ng/ml (0-0.045) 01/21/21 20:03 Total Protein 7.5 gm/dl (6.4-8.2) 01/21/21 20:03 Albumin 3.7 gm/dl (3.4-5.0) 01/21/21 20:03 Globulin 3.8 gm/dl (2.5-4.0) 01/21/21 20:03 Albumin/Globulin Ratio 1.0 (0.9-2) 01/21/21 20:03 Procalcitonin 8.27 ng/ml (0-0.5) H 01/21/21 20:03 Urine Color Dark Yellow 01/21/21 20:15 Urine Appearance Clear (Clear) 01/21/21 20:15 Urine pH >= 9.0 (4.5-7.5) H 01/21/21 20:15 Ur Specific [place] 1.024 (1.000-1.030) 01/21/21 20:15 Urine Protein 2+ (Negative) H 01/21/21 20:15 Urine Glucose (UA) Negative (Negative) 01/21/21 20:15 Urine Ketones 1+ (Negative) H 01/21/21 20:15 Urine Blood Negative (Negative) 01/21/21 20:15 Urine Nitrite Negative (Negative) 01/21/21 20:15 Urine Bilirubin Negative (Negative) 01/21/21 20:15 Urine Urobilinogen Negative (Negative) 01/21/21 20:15 Ur Leukocyte Esterase Trace (Negative) H 01/21/21 20:15 Urine WBC (Auto) 10-30 /hpf (0-5) H 01/21/21 20:15 Urine RBC (Auto) 0-4 /hpf (0-4) 01/21/21 20:15 U Hyaline Cast (Auto) 1-5 /lpf (0-5) 01/21/21 20:15 U Epithel Cells (Auto) >30 /lpf (0-5) H 01/21/21 20:15 Urine Bacteria (Auto) Negative (Negative) 01/21/21 20:15 Ur Renal Epithelial Cell Not Reportable 01/21/21 20:15 Anaplasma Smear See Comment 01/21/21 20:03 Lyme Disease IgG Ab Negative (Negative) 01/21/21 20:03 Lyme Disease IgM Ab Negative (Negative) 01/21/21 20:03 COVID-19 Eval Order Covid19 at [facility] 01/21/21 20:15 SARS-CoV-2 (PCR) POSITIVE (Negative) A* 01/21/21 20:15 Impressions Chest X-Ray 01/21/21 19:42 XR chest 1V portable CLINICAL HISTORY: SEPSIS COMPARISON STUDY: Chest radiograph July 21, 2020. FINDINGS: Lung volumes are normal. Lungs are clear. There is no pneumothorax or pleural effusion. Cardiomegaly is unchanged. Mediastinal contours are normal. There is no evidence for pulmonary edema. IMPRESSION: No acute cardiopulmonary findings. Cardiomegaly. ACT 112: Negative or not required by law. Electronically signed by: Reuben James M.D. 01/21/2021 8:33 PM Code Status & VTE Plan Code Status Full code VTE Prophylaxis Plan VTE Prophylaxis will be ordered: Yes PG Care Time/CCT Total # of Minutes Spent Total Time Spent with Patient: Total time spent is greater than 50% in coordination of care (as documented) at patient's floor/unit and/or counseling patient: Coding Level of Care Code 45923 Initial Inpt Care Lvl 3 Diagnoses URI (upper respiratory infection) J06.9 URI type: unspecified URI Dyslipidemia E78.5 Type 2 diabetes mellitus E11.9 Diabetes mellitus agency legal counsel insulin use: without intermediate use Diabetes mellitus complication status: without complication Gastroesophageal reflux disease K21.9 Esophagitis presence: without esophagitis CAD, multiple vessel I25.10 Hypertension I10 Hypertension type: essential hypertension (1) URI (upper respiratory infection) URI type: unspecified URI Qualified Code(s): J06.9 - Acute upper respiratory infection, unspecified (2) Type 2 diabetes mellitus Diabetes mellitus intermediate insulin use: without agency legal counsel use Diabetes mellitus complication status: without complication Qualified Code(s): E11.9 - Type 2 diabetes mellitus without complications (3) Gastroesophageal reflux disease Esophagitis presence: without esophagitis Qualified Code(s): K21.9 - Gastro- esophageal reflux disease without esophagitis (4) Hypertension Hypertension type: essential hypertension Qualified Code(s): I10 - Essential (primary) hypertension
[2021-01-22] MEDS: INSULIN ASPART 100 UNITS/ML 3 ML PEN SC SCH ×5 (05:23→21:05)
[2021-01-22] MEDS: methylPREDNISolone 20 MG in SYRINGE 0 ML IV SCH ×2 (06:21→12:50)
[2021-01-22 06:33] LABS: Basophils # (auto) 0.02 K/uL (0-0.2); Basophils % (auto) 0.2 %; Hematocrit (blood only) 36.7 % (42-52); Hemoglobin 12.3 g/dL (14.0-18.0); Immature Granulocytes # (auto) 0.02 K/uL (0.00-0.02); Immature Granulocytes % (auto) 0.2 %; Lymphocytes # (auto) 0.82 K/uL (1.2-3.4); Lymphocytes % (auto) 8.5 %; Mean Corpuscular Hemoglobin 29.3 pg (25-34); Mean Corpuscular Hgb Conc 33.5 g/dL (32-36); Mean Corpuscular Volume 87.4 fL (80-100); Mean Platelet Volume 10.2 fL (7.4-10.4); Monocytes # (auto) 0.54 K/uL (0.11-0.59); Monocytes % (auto) 5.6 %; Neutrophils # (auto) 8.28 K/uL (1.4-6.5); Neutrophils % (auto) 85.5 %; Platelet Count 112 K/uL (130-400); RDW Coefficient of Variation 15.5 % (11.5-14.5); RDW Standard Deviation 50.2 fL (36.4-46.3); White Blood Count 9.68 K/uL (4.8-10.8)
[2021-01-22 06:44] LABS: INR 1.1 (0.9-1.1); Prothrombin Time 11.3 Seconds (9.0-12.0)
[2021-01-22 07:10] LABS: Albumin Level 3.2 gm/dl (3.4-5.0); BUN Creatinine Ratio 11.5 (10-20); Calcium 8.2 mg/dl (8.5-10.1); Creatinine Clr Calc Pharmacy 67.9 ml/min; Est GFR (African American) 75.6 ml/min; Est GFR (Non-African American) 65.3 ml/min; Potassium 3.8 mmol/L (3.5-5.1)
[2021-01-22 07:15] LABS: Bilirubin,Total 1.2 mg/dl (0.2-1); Globulin 3.3 gm/dl (2.5-4.0); Total Protein 6.5 gm/dl (6.4-8.2); Troponin I 0.033 ng/ml (0-0.045)
[2021-01-22 08:22] LABS: Estimated Average Glucose 148 mg/dl; Hemoglobin A1C 6.8 % (4.5-5.6)
[2021-01-22] MEDS: cefTRIAXone SODIUM 2,000 MG in DEXTROSE 5% 50 ML IV SCH (09:02)
[2021-01-22] MEDS: PANTOprazole 40 MG TAB PO SCH (09:02)
[2021-01-22] MEDS: lisinopril 20 MG TAB PO SCH (09:02)
[2021-01-22] MEDS: CLOPIDOGREL BISULFATE 75 MG TAB PO SCH (09:03)
[2021-01-22] MEDS: ASPIRIN 81 MG ECTAB PO SCH (09:03)
[2021-01-22] MEDS: guaiFENesin 600 MG TABCR PO SCH ×2 (09:04→20:53)
[2021-01-22] MEDS: AZITHROMYCIN 500 MG in DEXTROSE 5% 250 ML IV SCH (09:52)
--- NOTE | 2021-01-22 12:37 | Electrocardiogram Report ---
Test Reason : Blood Pressure : / mmHG Vent. Rate : 105 BPM Atrial Rate : 105 BPM P-R Int : 148 ms QRS Dur : 070 ms QT Int : 308 ms P-R-T Axes : 053 -23 079 degrees QTc Int : 407 ms Sinus tachycardia Inferior infarct (cited on or before 21-JAN-2021) Abnormal ECG When compared with ECG of 19-JUL-2020 18:58, Questionable change in initial forces of Inferior leads Confirmed by Jean-Claude Edwards ([id number]) on 01/22/2021 12:37:11 PM Referred By: REFERRED SELF Confirmed By:Jean-Claude Edwards
[2021-01-22] MEDS ORDERED: MONTELUKAST SODIUM 10 MG TABLET PO SCH (21:00)
[2021-01-22] MEDS ORDERED: SIMVASTATIN 40 MG TAB PO SCH (21:00)
[2021-01-23] MEDS: ENOXAPARIN INJ 60 MG/0.6 ML SYR SQ SCH (05:42)
[2021-01-23 06:57] LABS: Basophils # (auto) 0.01 K/uL (0-0.2); Basophils % (auto) 0.1 %; Eosinophils # (auto) 0.01 K/uL (0-0.5); Eosinophils % (auto) 0.1 %; Hematocrit (blood only) 36.2 % (42-52); Hemoglobin 12.3 g/dL (14.0-18.0); Immature Granulocytes # (auto) 0.03 K/uL (0.00-0.02); Immature Granulocytes % (auto) 0.2 %; Lymphocytes # (auto) 1.09 K/uL (1.2-3.4); Mean Corpuscular Hemoglobin 28.9 pg (25-34); Mean Corpuscular Volume 85.2 fL (80-100); Mean Platelet Volume 10.3 fL (7.4-10.4); Monocytes # (auto) 1.33 K/uL (0.11-0.59); Monocytes % (auto) 10.9 %; Neutrophils % (auto) 79.7 %; Platelet Count 131 K/uL (130-400); RDW Coefficient of Variation 15.4 % (11.5-14.5); RDW Standard Deviation 47.8 fL (36.4-46.3); Red Blood Count 4.25 M/uL (4.7-6.1); White Blood Count 12.17 K/uL (4.8-10.8)
[2021-01-23 07:08] LABS: Partial Thromboplastin Ratio 1.1; Partial Thromboplastin Time 27.8 Seconds (21.0-31.0); Prothrombin Time 10.2 Seconds (9.0-12.0)
[2021-01-23 07:34] LABS: Alanine Aminotransferase 30 U/L (12-78); Albumin Level 3.1 gm/dl (3.4-5.0); Aspartate Aminotransferase 18 U/L (15-37); BUN Creatinine Ratio 22.1 (10-20); Blood Urea Nitrogen 25 mg/dl (7-18); Calcium 8.6 mg/dl (8.5-10.1); Carbon Dioxide 28 mmol/L (21-32); Chloride 108 mmol/L (98-107); Creatinine Clr Calc Pharmacy 70.1 ml/min; Est GFR (African American) 78.9 ml/min; Est GFR (Non-African American) 68.1 ml/min; Glucose 170 mg/dl (70-99); Magnesium 2.4 mg/dl (1.8-2.4); Potassium 4.5 mmol/L (3.5-5.1); Sodium 138 mmol/L (136-145)
[2021-01-23 07:39] LABS: Albumin Globulin Ratio 0.9 (0.9-2); Alkaline Phosphatase 69 U/L (45-117); Bilirubin,Total 0.6 mg/dl (0.2-1); Globulin 3.6 gm/dl (2.5-4.0); Total Protein 6.7 gm/dl (6.4-8.2); Troponin I < 0.015 ng/ml (0-0.045)
[2021-01-23] MEDS: cefTRIAXone SODIUM 2,000 MG in DEXTROSE 5% 50 ML IV SCH (08:00)
[2021-01-23] MEDS ORDERED: methylPREDNISolone 20 MG in SYRINGE 0 ML IV SCH (09:00)
[2021-01-23] MEDS: PANTOprazole 40 MG TAB PO SCH (09:26)
[2021-01-23] MEDS: ASPIRIN 81 MG ECTAB PO SCH (09:26)
[2021-01-23] MEDS: lisinopril 20 MG TAB PO SCH (09:26)
[2021-01-23] MEDS: METOPROLOL SUCC 25MG EXT REL TAB PO SCH (09:27)
[2021-01-23] MEDS: guaiFENesin 600 MG TABCR PO SCH (09:27)
[2021-01-23] MEDS: CLOPIDOGREL BISULFATE 75 MG TAB PO SCH (09:27)
[2021-01-23] MEDS: AZITHROMYCIN 500 MG in DEXTROSE 5% 250 ML IV SCH (09:28)
[2021-01-23] MEDS: INSULIN ASPART 100 UNITS/ML 3 ML PEN SC SCH (09:39)
--- NOTE | 2021-01-23 10:56 | XRay Report ---
SINGLE VIEW CHEST CLINICAL HISTORY: Fever. Covid. FINDINGS: An AP, portable, upright chest radiograph is compared to study dated 01/21/2021. Correlation is made with chest CT dated 07/19/2020. The examination is degraded by portable technique, apical rich dotic positioning, large body habitus, and patient rotation. The heart is mildly enlarged. The pulmo nary vasculature is noncongested. There is mild bibasilar atelectasis. The lungs and pleural spaces a re otherwise clear. No pneumothorax is seen. The bony thorax is grossly intact. IMPRESSION: No active disease in the chest. ACT 112: Negative or not required by law. Electronically signed by: Rustam Poole M.D. 01/23/2021 10:55 AM
--- NOTE | 2021-01-24 19:04 | Discharge Summary ---
Date of Service January 23, 2021 Admission HPI Per Admitting Provider The patient is a 65-year-old male with a past medical history including lumbar disc disease with right-sided sciatica, transaminitis, morbid obesity, pneumonia due to COVID-19 virus with admission from 07/19/20-07/25/20, pulmonary nodule, dyslipidemia, stented coronary artery, diabetes mellitus type 2, cervical lymphadenopathy, GERD, multivessel CAD and hypertension. Patient presents with 2 days of symptoms as noted above. Principal Diagnosis upper respiratory infection Discharge Exam The patient is awake, alert and oriented 3, well developed and well nourished, normocephalic and atraumatic, lying in bed and in no acute distress. HEENT--PERRL, EOMI, mucous membranes and oropharynx normal. Neck--supple. No JVD. No bruits. Thyroid normal, trachea midline, no adenopathy. Heart--normal S1 and S2. No murmurs, rubs or gallops. Lungs--clear bilaterally, no respiratory distress, no accessory muscle use. Abdomen--normal bowel sounds and soft. Nontender. Nondistended. Morbidly obese Extremities--no cyanosis or clubbing. No edema. Dermatologic--normal skin turgor, normal color, no abnormal lymph nodes, no rash. Neurologic--cranial nerves II through XII grossly intact. Rheumatologic--normal range of motion. Psychiatric--normal affect. Discharge Data Allergies Allergy/AdvReac Type Severity Reaction Status Date / Time No Known Allergies Allergy Verified 01/21/21 21:41 Consultations 01/21/21 22:32 ED Decision to Admit Stat Hospital Course (1) URI (upper respiratory infection): Upper respiratory infection/sinusitis- Ceftriaxone 2 g IV daily Azithromycin 500 mg IV daily Guaifenesin extended release 600 mg p.o. every 12 hours Methylprednisolone 20 mg IV every 8 hours Patient was admitted from 07/19/2020-07/25/2020 for COVID-19 pneumonia nausea acute respiratory failure with hypoxia. Patient did test positive for COVID-19 in the ED this evening, but unlikely that this is a cause of his symptoms. Lyme IgG and IgM were negative in the ED, anaplasmosis smear was negative, with anaplasmosis antibody is pending will discharge on antibiotics to cover for community acquired pneumonia (2) Dyslipidemia: Continue simvastatin 40 mg at bedtime (3) Type 2 diabetes mellitus: Hold Metformin Placed on Accu-Cheks before meals and at bedtime with NovoLog coverage per scale (4) Gastroesophageal reflux disease: Continue pantoprazole 40 mg every morning (5) CAD, multiple vessel: Multivessel CAD/hypertension- The patient will be admitted to telemetry for serial cardiac enzymes, serial EKG's, cardiac rhythm monitoring and a 2-D echocardiogram with Dopplers. Continue aspirin 81 mg in the morning, clopidogrel 75 mg every morning, lisinopril 20 mg every morning, metoprolol succinate 25 mg p.o. twice daily and nitroglycerin sublingual as as needed (6) Hypertension: See above Total Time Total Time Spent Total Time Spent (In Minutes): 32 Total Time Includes: Examination of the Patient, Discharge Planning and Medication Reconciliation Discharge Plan Discharge Items Patient Disposition: Home - Self-Care Reason For Visit: SEPSIS, URI, ARTHRALGIAS Discharge Diagnosis: Sespsis Activity: Resume your previous activity Non-emergency contact: Primary Care Provider Call non-emergency contact if: you have any medication questions Follow-up/Referrals: Nishant Dawn III, MD [Primary Care Provider] - Diet: Regular Addtl Attending Provider Instructions: Start antibiotics tomorrow morning. Hold pantoprazole until you complete your antibiotics. Followup with PCP in 1-2 weeks You were treated for a bacterial pneumonia. And you are clearly improving from this treatment (antibiotics). You also had a positive COVID 19 test. This could be a false positive or it could be real. Would need to get retested to know for sure. However the value of this is very slim to known, as our treatment woulld not be changed even if you were positive. Even if you are re-infected with COVID, you are likely going to have a low viral load given that you had the illness in the past and were vaccinated twice. Also your symptoms were not related with a COVID infection and improved with antibiotics. You also had an elevated procalcitonin which increases with bacterial infections and not viral infections. I would just recommend masking and keeping a safe distance from unvaccinated people over the course of the next 7 days. Pending Studies at Discharge: No Stand-Alone Forms: My [facility] [employer], Smoking Cessation Medications and DC Order Prescriptions: New cefpodoxime 200 mg tablet 200 mg PO BID Qty: 8 RF: 0 azithromycin 250 mg tablet 250 mg PO DAILY Qty: 3 RF: 0 prednisone 10 mg tablet See Rx Instructions .ROUTE .COMPLEX Qty: 6 RF: 0 amoxicillin-pot clavulanate [Augmentin XR] 1,000-62.5 mg tablet extended release 12 hr 1 tab PO BID Qty: 2 RF: 0 Continued metoprolol succinate 25 mg tablet extended release 24 hr 25 mg PO BID Qty: 180 RF: 3 montelukast 10 mg tablet 10 mg PO QPM Qty: 90 RF: 3 metformin 500 mg tablet extended release 24 hr 500 mg PO BID Qty: 180 RF: 3 lisinopril 20 mg tablet 20 mg PO QAM Qty: 90 RF: 3 (DME) lancets [OneTouch Delica Lancets] 33 gauge misc See Dose Instructions .ROUTE .MEDSUPPLY Qty: 100 RF: 3 nitroglycerin 0.4 mg tablet, sublingual 0.4 mg SL DIRECTED PRN (Reason: Chest Pain) Qty: 25 RF: 3 clopidogrel 75 mg tablet 75 mg PO QAM Qty: 90 RF: 3 simvastatin 40 mg tablet 40 mg PO HS Qty: 90 RF: 3 methocarbamol 500 mg tablet 500 mg PO TID PRN (Reason: back pain/spasm) Qty: 30 RF: 1 aspirin [Aspirin Low Dose] 81 mg Tablet,Delayed Release (Dr/Ec) 81 mg PO QAM RF: 0 Discontinued pantoprazole 40 mg tablet,delayed release (DR/EC) 40 mg PO QAM RF: 0 Discharge Orders: Discharge Order (Routine); Ordered 01/23/21 Ordered By: Leo Arellano/Other Patient Handouts: Managing Type 2 Diabetes, A1C Admission Data Admit Date/Time: 01/22/21 00:18 Attending Provider: Leo Menjivar Admit Provider: Armani Penny Primary Care Provider: Nishant Dawn III Other Providers: Armani Penny Other Interventions: Discharge Summary Assessment (RN) Last Done: 01/23/21 11:03 Coding Level of Care Code D/C Day Management >30 mins Diagnoses URI (upper respiratory infection) J06.9 URI type: unspecified URI Dyslipidemia E78.5 Type 2 diabetes mellitus E11.9 Diabetes mellitus complication status: without complication Diabetes mellitus termite control representative insulin use: without termite control representative use Gastroesophageal reflux disease K21.9 Esophagitis presence: without esophagitis CAD, multiple vessel I25.10 Hypertension I10 Hypertension type: essential hypertension Time Spent (min) 32
== END 2021-01-23 13:39 | disposition home or self-care (01) ==
LOC: ED 19:20 → SUATTDRO 01-22 00:18 → 2E 01-22 00:18 → INTOOBSV 01-22 00:18 → 2E 01-22 01:30